=== PATIENT | female | born 1940 | race Native Hawaiian/Other Pacific Islander ===

== ENCOUNTER 2018-02-24 10:22 | Inpatient (IN) | payer MEDICARE, OTHER ==
[2018-02-24 10:36] VITALS: BMI 17.2
[2018-02-24 11:53] LABS: ALB/GLOB RATIO 1.3 (1.0-2.1); ALBUMIN 3.6 g/dL (3.5-5.0)
--- NOTE | 2018-02-24 11:55 | C.PDOC ---
History Of Present Illness 77 year old female, with past medical history of HTN, and hypothyroidism, is sent to ED by PMD for evaluation of elevated potassium levels. Patient is unsure of potassium levels. Otherwise, denies chest pain, shortness of breath, hea dache, or any active physical complaints at this time. Time Seen by Provider: 02/24/18 10:44 Chief Complaint (Nursing): Abnormal Labs History Per: Patient History/Exam Limitations: no limitations Onset/Duration Of Symptoms: Days Current Symptoms Are (Timing): Still Present Recent travel outside of the [place]: No Additional History Per: Patient Past Medical History Reviewed: Historical Data, Nursing Documentation, Vital Signs Vital Signs: Last Vital Signs Temp 98.2 F 02/24/18 10:29 Pulse 68 02/24/18 11:18 Resp 18 02/24/18 10:40 BP 130/55 L 02/24/18 11:18 Pulse Ox 100 02/24/18 10:29 - Medical History PMH: Arthritis, HTN Denies: Chronic Kidney Disease Family History: States: Unknown Family Hx - Social History Hx Tobacco Use: No Hx Alcohol Use: No Hx Substance Use: No - Immunization History Hx Tetanus Toxoid Vaccination: No (not sure) Hx Influenza Vaccination: Yes Hx Pneumococcal Vaccination: Yes Review Of Systems Except As Marked, All Systems Reviewed And Found Negative. Constitutional: Negative for: Fever, Chills Cardiovascular: Negative for: Chest Pain, Palpitations Respiratory: Negative for: Shortness of Breath Gastrointestinal: Negative for: Nausea, Vomiting, Abdominal Pain Neurological: Negative for: Headache, Dizziness Physical Exam - Physical Exam Appears: Non-toxic, No Acute Distress, Other (thin habitus) Skin: Normal Color, Warm, Dry Head: Atraumatic, Normacephalic Eye(s): bilateral: Normal Inspection Oral Mucosa: Moist Neck: Normal ROM, Supple Cardiovascular: Rhythm Regular, No Murmur Respiratory: Normal Breath Sounds, No Rales, No Rhonchi, No Wheezing Gastrointestinal/Abdominal: Soft, No Tenderness Extremity: Normal ROM Neurological/Psych: Oriented x3, Normal Speech ED Course And Treatment - Laboratory Results Result Diagrams: 02/24/18 12:40 02/24/18 11:22 Lab Interpretation: Abnormal ECG: Interpreted By Me, Viewed By Me ECG Rhythm: Sinus Rhythm ECG Interpretation: No Acute Changes Rate From EC (LAD, no peaked Twaves) O2 Sat by Pulse Oximetry: 100 (on RA) Pulse Ox Interpretation: Normal Medical Decision Making Medical Decision Making: Impression: 77 year old female presents with elevated potassium levels. Plan: * Blood work * ECG * Albuterol * Lasix * Insulin * Dextrose Progress: Labs reviewed with hyperkalemia 6.[address] Amaro who also recommended adding additional medications and to repeat labs in an hour. 1355 Patient started feeling unwell, diaphoretic and tachycardia at 120s. I went to bedside to evaluated. Accucheck was 26 and repeat still low. Ordered dextrose and another stat EKG. EKG shows NS at 91 bpm with peaked Twaves in V4-6. Case discussed with Dr Amaro who states patient needs repeat labs and to admit to tele. Patient repeat sugar improved. She was more alert and awake and was given some food to eat. She is stable for tele admission. Contact Dr Driver for admission and she accepted Disposition - Disposition Disposition: HOSPITALIZED Disposition Time: 14:52 Condition: FAIR - POA Present On Arrival: None - Clinical Impression Clinical Impression: Hyperkalemia - PA / FINANCIAL INVESTMENT ADVISER / Resident Statement MD/DO has reviewed & agrees with the documentation as recorded. - Scribe Statement The provider has reviewed the documentation as recorded by the Scribe Napoleon clay All medical record entries made by the Ronnyibe were at my direction and personally dictated by me. I have reviewed the chart and agree that the record accurately reflects my personal performance of the history, physical exam, medical decision making, and the department course for this patient. I have also personally directed, reviewed, and agree with the discharge instructions and disposition. Decision To Admit - Pt Status Changed To: Hospital Disposition Of: Observation - . Bed Request Type: Telemetry Admitting Physician: Canelo Miles Patient Diagnosis: Hyperkalemia
[2018-02-24] MEDS ORDERED: Albuterol 0.083% Inhal Sol (2.5 mg/3 mL) UD IH STA (12:03)
[2018-02-24] MEDS ORDERED: (Novolin R) Insulin Human Regular 100 units/ml vial IVP ONE (12:04)
[2018-02-24] MEDS ORDERED: Dextrose 50% SYRINGE Inj (50 ml) IV STA (12:04)
[2018-02-24] MEDS ORDERED: Dextrose 50% SYRINGE Inj (50 ml) ONE ×2 (12:31→14:08)
[2018-02-24] MEDS ORDERED: (Novolin R) Insulin Human Regular 100 units/ml vial ONE (12:31)
[2018-02-24 12:46] LABS: MEAN CELL VOLUME 90.4 fL (81.0-99.0); MEAN CORPUSCULAR HEMOGLOBIN 30.4 pg (27.0-31.0); MEAN CORPUSCULAR HGB CONC 33.7 g/dL (33.0-37.0); MEAN PLATELET VOLUME 7.6 fL (7.2-11.7); RBC 3.01 Mil/uL (3.80-5.20); RED CELL DISTRIBUTION WIDTH 13.1 % (11.5-14.5); WHITE BLOOD COUNT 4.7 K/uL (4.8-10.8)
[2018-02-24 13:03] LABS: HEMOGLOBIN 9.2 g/dL (11.0-16.0)
[2018-02-24] MEDS ORDERED: Calcium Gluconate 4.65 mEq/10 ml Inj IVP ONE (13:24)
[2018-02-24] MEDS ORDERED: Sod Polystyrene Sulf 15 gm/60 ml Susp PO ONE (13:25)
[2018-02-24] MEDS ORDERED: Dextrose 50% SYRINGE Inj (50 ml) IVP STA (14:00)
[2018-02-24] MEDS ORDERED: Glucagon Recombinant 1 mg Inj IM PRN (14:16)
[2018-02-24] MEDS ORDERED: Dextrose 50% SYRINGE Inj (50 ml) IV PRN (14:16)
[2018-02-24] MEDS ORDERED: Calcium Gluconate 4.65 mEq/10 ml Inj ONE (14:20)
[2018-02-24] MEDS ORDERED: Sod Polystyrene Sulf 15 gm/60 ml Susp ONE (14:20)
[2018-02-24] MEDS ORDERED: Sodium Chloride 0.9% 1,000 ML IV ONE (14:22)
--- NOTE | 2018-02-24 15:42 | CP.PCM.HP ---
<Fidel Zamora - Last Filed: 02/24/18 21:11> History of Present Illness - History of Present Illness History of Present Illness: PGY1 Medicine H&P for hospitalist Dr. Chang. 77 F w/ Pmhx of CKD, ?dementia, HTN, thyroid disorder present to ED after referral by her PMD for hyperkalemia. Pt states she was is completely asymptomatic however, her priamry had called indicated her level was high. Patient denies chest pain, SOB, nausea, vomtiing, palpitation, headaches, vision changes. Patient did state during ED, she felt a little palpitation because of blood sugars dropping to 20s, but right now she feels normal. PMD: Catrachito Monsivais, Nephro: Faith, endo: Dr. Burnham PMhX: CKD stage 3, HTN, dementia?, thyroid disorder Meds: clondine 0.1 mg TID, Cozaar 50 mg daily, Spirolactone 50 mg BID, Methimazole 10 mg daily, Atorvastatic 20 mg daily, Asipring 81 mg daily Allergies: Walnuts PSHx: None SHx: Denies tobacco, ETOH Full Code Present on Admission - Present on Admission Any Indicators Present on Admission: No Review of Systems - Constitutional Constitutional: absent: Chills, Fever, Frequent Falls - EENT Eyes: absent: Blurred Vision, Discharge Nose/Mouth/Throat: absent: Nasal Congestion, Sinus Pressure, Dry Mouth - Cardiovascular Cardiovascular: absent: Chest Pain, Diaphoresis, Dyspnea - Respiratory Respiratory: absent: Cough, Dyspnea, Stridor - Gastrointestinal Gastrointestinal: absent: Abdominal Pain, Cramping, Vomiting - Genitourinary Genitourinary: absent: Change in Urinary Stream - Musculoskeletal Musculoskeletal: absent: Abnormal Gait, Arthralgias, Joint Swelling - Neurological Neurological: absent: Abnormal Gait, Behavioral Changes, Dizziness Past Patient History - Past Medical History & Family History Past Medical History?: Yes - Past Social History Smoking Status: Never Smoked - CARDIAC Hx Hypertension: Yes - PULMONARY Hx Respiratory Disorders: No - NEUROLOGICAL Hx Neurological Disorder: No - HEENT Hx HEENT Problems: No - RENAL Hx Chronic Kidney Disease: No - ENDOCRINE/METABOLIC Hx Endocrine Disorders: No - HEMATOLOGICAL/ONCOLOGICAL Hx Blood Disorders: No - INTEGUMENTARY Hx Dermatological Problems: No - MUSCULOSKELETAL/RHEUMATOLOGICAL Hx Arthritis: Yes - GASTROINTESTINAL Hx Gastrointestinal Disorders: No - GENITOURINARY/GYNECOLOGICAL Hx Genitourinary Disorders: No - PSYCHIATRIC Hx Substance Use: No - SURGICAL HISTORY Hx Surgeries: No - ANESTHESIA Hx Anesthesia: No Meds Allergies/Adverse Reactions: Allergies Allergy/AdvReac Type Severity Reaction Status Date / Time No Known Allergies Allergy Verified 02/24/18 10:31 Physical Exam - Constitutional Appears: Non-toxic, No Acute Distress, Cachectic - Head Exam Head Exam: NORMAL INSPECTION - Eye Exam Eye Exam: EOMI, Normal appearance Pupil Exam: NORMAL ACCOMODATION - ENT Exam ENT Exam: Mucous Membranes Moist - Neck Exam Neck exam: Negative for: Lymphadenopathy, Thyromegaly - Respiratory Exam Respiratory Exam: Clear to Auscultation Bilateral, NORMAL BREATHING PATTERN. absent: Rales, Rhonchi, Wheezes - Cardiovascular Exam Cardiovascular Exam: +S1, +S2. absent: Systolic Murmur - GI/Abdominal Exam GI & Abdominal Exam: Normal Bowel Sounds, Soft. absent: Mass, Rebound - Extremities Exam Extremities exam: Positive for: full ROM, normal inspection. Negative for: calf tenderness, pedal edema - Back Exam Back exam: NORMAL INSPECTION. absent: CVA tenderness (L), CVA tenderness (R) - Neurological Exam Neurological exam: Alert, Oriented x3 - Psychiatric Exam Psychiatric exam: Normal Affect, Normal Mood - Skin Skin Exam: Dry, Intact, Normal Color, Warm Results - Vital Signs Recent Vital Signs: Last Vital Signs Temp 98.2 F 02/24/18 10:29 Pulse 77 02/24/18 14:31 Resp 17 02/24/18 14:31 BP 129/60 02/24/18 14:31 Pulse Ox 100 02/24/18 15:10 - Labs Result Diagrams: 02/24/18 12:40 02/24/18 17:17 Labs: Laboratory Results - last 24 hr 02/24/18 02/24/18 02/24/18 11:22 12:40 14:04 WBC 4.7 L RBC 3.01 L Hgb 9.2 L D Hct 27.2 L MCV 90.4 MCH 30.4 MCHC 33.7 RDW 13.1 Plt Count 205 MPV 7.6 Sodium 133 Potassium 6.4 H* D Chloride 107 Carbon Dioxide 19 L Anion Gap 14 BUN 38 H Creatinine 2.8 H Est GFR ( Amer) 20 Est GFR (Non-Af Amer) 16 POC Glucose (mg/dL) 23 L* Random Glucose 125 H Calcium 9.0 Magnesium 2.4 H Total Bilirubin 0.4 AST 21 ALT 21 Alkaline Phosphatase 35 L D Total Protein 6.3 Albumin 3.6 Globulin 2.7 Albumin/Globulin Ratio 1.3 02/24/18 02/24/18 02/24/18 14:06 14:09 14:30 WBC RBC Hgb Hct MCV MCH MCHC RDW Plt Count MPV Sodium Potassium Chloride Carbon Dioxide Anion Gap BUN Creatinine Est GFR ( Amer) Est GFR (Non-Af Amer) POC Glucose (mg/dL) 26 L* 320 H 137 H Random Glucose Calcium Magnesium Total Bilirubin AST ALT Alkaline Phosphatase Total Protein Albumin Globulin Albumin/Globulin Ratio 02/24/18 15:07 WBC RBC Hgb Hct MCV MCH MCHC RDW Plt Count MPV Sodium Potassium Chloride Carbon Dioxide Anion Gap BUN Creatinine Est GFR ( Amer) Est GFR (Non-Af Amer) POC Glucose (mg/dL) 94 Random Glucose Calcium Magnesium Total Bilirubin AST ALT Alkaline Phosphatase Total Protein Albumin Globulin Albumin/Globulin Ratio Assessment & Plan - Assessment and Plan (Free Text) Assessment: 77 F w/ Pmhx of CKD, ?dementia, HTN, thyroid disorder present to ED after refe rral by her PMD for hyperkalemia Hyperkalemia - on admission 6.4, asymptomatic - peaked T wave on EKG - in ED received Calcium gluconate & insulin 10 units, lasix, & kayexalate - resulting in hypoglycemia in BS of 20s - D50 X3 given - Repeat K+ 5.4 - D51/2NS @50ml/hr Chronic Kidney Disease - stage 3 - BUN/Cr -> 38/2.8 - F/u nephDr. Faith wallace recs - Hold Cozaar & Aldactone Hypertension - per Dr. Cuevas, patient runs in SBP 180s - c/w home meidication clonidine 0.1 mg PO TID - Hold Cozaar & Aldactone - start amlodipine 5 mg Po daily Thyroid Disorder - c/w home medication methimazole 10 mg PO daily Prophylaxis - DVT: Heparin 5000 units Q12h - Diet- renal diet, non dialysis - Multivimin <Jeanette Chang V - Last Filed: 03/01/18 10:50> Results - Vital Signs Recent Vital Signs: Last Vital Signs Temp 97.9 F 02/28/18 07:00 Pulse 70 02/28/18 08:00 Resp 20 02/28/18 07:00 BP 149/75 02/28/18 10:48 Pulse Ox 99 02/28/18 07:00 - Labs Result Diagrams: 02/28/18 06:25 02/28/18 11:13 Labs: Laboratory Results - last 24 hr 02/26/18 02/26/18 02/28/18 08:49 16:34 11:13 Creatinine 1.9 H POC Glucose (mg/dL) Thyroid Stim Immunoglob 558 H U Random Total Protein 282 H Urine Collection Time 24 Urine Total Volume 1200 Ur Creatinine 24 Hour Creatinine Clearance 21.0 L Ur Total Protein 24 Hr Protein/Creat Ratio 24h Ur Sodium 24 Hour 02/28/18 02/28/18 02/28/18 11:13 11:13 11:13 Creatinine POC Glucose (mg/dL) Thyroid Stim Immunoglob U Random Total Protein Urine Collection Time 24 24 Urine Total Volume 1200 1200 Ur Creatinine 24 Hour 604.8 L 0.62 Creatinine Clearance Ur Total Protein 24 Hr 168 H Protein/Creat Ratio 24h 269 H Ur Sodium 24 Hour 84.0 02/28/18 12:03 Creatinine POC Glucose (mg/dL) 119 H Thyroid Stim Immunoglob U Random Total Protein Urine Collection Time Urine Total Volume Ur Creatinine 24 Hour Creatinine Clearance Ur Total Protein 24 Hr Protein/Creat Ratio 24h Ur Sodium 24 Hour Attending/Attestation - Attestation I have personally seen and examined this patient.: Yes I have fully participated in the care of the patient.: Yes I have reviewed all pertinent clinical information: Yes Notes (Text): This is late computer entry for 02/24/18 Patient seen, examined and case discussed with medical facilities section director. Patient seen in [facility] Bed 11 in the Emergency Room accompanied by , son and daughter in law. Patient was called by PMD for abnormal lab value specifically hyperkalemia in light of chronic kidney disease. Patient reported feeling leg cramps and in the ED had abnormal EKG consistent with hyperkalemia. Patient was treated by ED for hyperkalemia, received total of Regular insulin 30 units of IV however, became hypoglycemic. I spoke with patient's economist research assistant, patient has a history of RTA 4, hyperaldosteronism, and is presently on aldactone, ARB, and diuretic. Patient has a history of hypertension, usually systolic blood pressure in the 180s, which she also takes clonidine as well. Patient at home eats sparingly, today orange juice/pineapple juice as well. Patient has a history of underlying dementia as well, very conversational and pleasant. Patient reports she has been having poor appetite with unintentional weight loss. Assessment/Plan 1. Hyperkalemia Assessment/Plan * on telemetry * on admission 6.4, asymptomatic * peaked T wave on EKG * in ED received Calcium gluconate & (insulin 10 units X3), lasix, & kayexalate - resulting in hypoglycemia in BS of 20s; requiring D50 X3 given * Repeat K+ 5.4 and check Mg2+ * Patient started on gentle iv hydration supplemented with dextrose * Patient's cozaar, aldactone held secondary to side effect of hyperkalemia 2. History of Chronic Kidney Disease Assessment/Plan * Consult Dr Cuevas help appreciated * Case discussed with nephrology, will see the patient in the morning * monitor BUN/Cr * hold aldactone/cozaar 3. Essential Hypertension Assessment/Plan * Consult Dr Cuevas help appreciated * patient's systolic BP around the 180s normally * d/c arb/aldactone * c/w home mediication clonidine 0.1 mg PO TID * Start amlodipine 5 mg Po daily 4. Thyroid Disorder * c/w home medication methimazole 10 mg PO daily * Check TSH, Free T4 5. Hypoglycemia * secondary to treatment of hyperkalemia, chronic kidney disease * check accuchecks Q6H * Hypoglycemic protocol * Monitor on telemetry * patient ordered for gentle IV hydration supplemented with dextrose 6. Prophylaxis * DVT PPx: Heparin 5000 units Q12h * Diet- renal diet, non dialysis, low sodium diet
[2018-02-24] MEDS ORDERED: Dextrose 5%/0.45% NS 1,000 ML IV SCH (17:15)
[2018-02-24 18:04] LABS: ALB/GLOB RATIO 1.3 (1.0-2.1); ALBUMIN 3.9 g/dL (3.5-5.0); CALCIUM 9.4 mg/dl (8.6-10.4)
[2018-02-24 18:41] VITALS: RESP 20
[2018-02-24 19:55] LABS: CK-MB 1.82 ng/mL (0.0-3.38); TROPONIN I 0.028 ng/mL (0.00-0.120)
[2018-02-24] MEDS: Psyllium Packet PO SCH (21:59)
[2018-02-25 00:52] LABS: CK-MB 1.89 ng/mL (0.0-3.38); TROPONIN I 0.038 ng/mL (0.00-0.120)
[2018-02-25] MEDS: Albuterol-Ipratrop 3 mg / 0.5 (3 ml) UD INH SCH ×4 (01:31→19:57)
--- NOTE | 2018-02-25 07:33 | CP.PCM.PN ---
<Fidel Zamora M - Last Filed: 02/25/18 19:39> Subjective - Date & Time of Evaluation Date of Evaluation: 02/25/18 Time of Evaluation: 08:00 - Subjective Subjective: PGY1 Medicine Progress for Hospitalist Dr. Chang. Patient seen and examined. No acute events reported overnight. Patient remains asymptomatic early in AM. Denied chest pain, n/v, fevers, chills, abdominal pain, headaches, vision changes. AM labs reported elevated K+ resulting in duonebs & kayexalate 30 mg. Repeat K+ showed 5.2. In mid day patient became tachy in 130s. Patient had minor palpitations, but became asymptomatic with persistence of HR in 130s. Lopressor 5mg IVP given, with repeat HR in 90s to 100s. Additionally patient began complaining of episodes of non bloody, watery, diarrhea. Objective - Vital Signs/Intake and Output Vital Signs (last 24 hours): Temp Pulse Resp BP Pulse Ox 97.9 F 63 20 119/62 100 02/24/18 23:25 02/25/18 01:31 02/24/18 23:25 02/24/18 23:25 02/24/18 23:25 Intake and Output: 02/25/18 02/25/18 06:59 18:59 Intake Total 720 Balance 720 - Medications Medications: Current Medications Albuterol/Ipratropium (Duoneb 3 Mg/0.5 Mg (3 Ml) Ud) 3 ml INH RQ6 [facility] Last Admin: 02/25/18 01:31 Dose: 3 ml Amlodipine Besylate (Norvasc) 5 mg PO DAILY [facility] Aspirin (Aspirin Chewable) 81 mg PO DAILY [facility] Clonidine HCl (Catapres) 0.1 mg PO TID [facility] Last Admin: 02/24/18 18:10 Dose: 0.1 mg Dextrose (Dextrose 50% Inj) 0 ml IV STAT PRN; Protocol PRN Reason: Hypoglycemia Protocol Dextrose (Glutose 15) 0 gm PO ONCE PRN; Protocol PRN Reason: Hypoglycemia Protocol Glucagon (Glucagen Diagnostic Kit) 0 mg IM STAT PRN; Protocol PRN Reason: Hypoglycemia Protocol Heparin Sodium (Porcine) (Heparin) 5,000 units SC Q12 [facility] Last Admin: 02/24/18 21:59 Dose: 5,000 units Dextrose (Dextrose 5% In Water 1000 Ml) 1,000 mls @ 0 mls/hr IV .Q0M PRN; Protocol PRN Reason: Hypoglycemia Protocol Last Admin: 02/24/18 15:59 Dose: 100 mls/hr Dextrose/Sodium Chloride (Dextrose 5%/0.45% Ns 1000 Ml) 1,000 mls @ 50 mls/hr IV .Q20H [facility] Stop: 02/25/18 17:16 Last Admin: 02/24/18 17:23 Dose: 50 mls/hr Losartan Potassium (Cozaar) 50 mg PO DAILY [facility] Methimazole (Tapazole) 10 mg PO DAILY [facility] Multivitamins (Hexavitamin) 1 tab PO DAILY [facility] Psyllium Hydrophilic Mucilloid (Hydrocil Instant) 1 pkt PO QPM [facility] Last Admin: 02/24/18 21:59 Dose: 1 pkt Rosuvastatin Calcium (Crestor) 10 mg PO HS [facility] Spironolactone (Aldactone) 50 mg PO BID [facility] - Labs Labs: 02/24/18 12:40 02/24/18 17:17 - Constitutional Appears: Non-toxic, No Acute Distress, Cachectic - Head Exam Head Exam: NORMAL INSPECTION - Eye Exam Eye Exam: Normal appearance Pupil Exam: NORMAL ACCOMODATION - ENT Exam ENT Exam: Mucous Membranes Moist - Neck Exam Neck Exam: Normal Inspection - Respiratory Exam Respiratory Exam: Clear to Ausculation Bilateral, NORMAL BREATHING PATTERN. absent: Rales, Rhonchi, Wheezes - Cardiovascular Exam Cardiovascular Exam: +S1, +S2. absent: Irregular Rhythm, Murmur - GI/Abdominal Exam GI & Abdominal Exam: Soft, Normal Bowel Sounds - Extremities Exam Extremities Exam: Full ROM, Normal Inspection. absent: Calf Tenderness, Pedal Edema - Back Exam Back Exam: absent: CVA tenderness (L), CVA tenderness (R) - Neurological Exam Neurological Exam: Alert, Awake, Oriented x3 - Psychiatric Exam Psychiatric exam: Normal Affect, Normal Mood - Skin Skin Exam: Dry, Intact, Normal Color, Warm Assessment and Plan - Assessment and Plan (Free Text) Assessment: 77 F w/ Pmhx of CKD, ?dementia, HTN, thyroid disorder present to ED after referral by her PMD for hyperkalemia. Hyperkalemia treated; however, continues to fluctuate. Additionally, patient has bouts of tachycardia, w/ TSH < 0.2, Hyperkalemia Hx of RTA Type 4 hypoaldosteronism Chronic Kidney Disease, stage 3 - K+ fluctuating, from 6.4 on admission to presently 5.2 - D51/2NS @50ml/hr - BUN/Cr worsening since admission - F/u nephDr. Faith wallace recs - Hold Cozaar & Aldactone Anemia - hgb 9s to 10s; previously in 2017, 12s - Iron, Ferritin, TIBC MCV, wnl - likely secondary due to CKD - F/u Folate & Reticulocyte count Thyroid Disorder Tachycardia - TSH < 0.2, Free T4 0.91 - F/u Thyroid U/S - F/u TSI, TBI, T3, T4 - F/u endo Dr. Vic mckinnon - increase methimazole 10 mg daily to BID Weight Loss - significant weight loss 10+ pounds - Cancer vs thyroid disorder vs ? - per pt, had normal colonoscopy 2 years prior w/ Dr. Bone - TSH < 0.02, will f/u endo Dr. Churchill recs as above - Will consider scan for malignancy/ mass Diarrhea - infectious vs thyroid disorder - f/u C.diff, ova/parasites, & stool culture - See thyroid plan above Hypertension - per Dr. Cuevas, patient runs in SBP 180s - c/w home meidication clonidine 0.1 mg PO TID - Hold Cozaar & Aldactone - start amlodipine 5 mg Po daily - lopressor 5mg IVP Q6h PRN for SBP/ tachycardia - F/u Echo Dementia - stable - continue to monitor Prophylaxis - DVT: Heparin 5000 units Q12h - Diet- renal diet, non dialysis - Multivimine <Jeanette Chang V - Last Filed: 03/01/18 11:04> Objective - Vital Signs/Intake and Output Vital Signs (last 24 hours): Temp Pulse Resp BP Pulse Ox 97.9 F 70 20 149/75 99 02/28/18 07:00 02/28/18 08:00 02/28/18 07:00 02/28/18 10:48 02/28/18 07:00 - Labs Labs: 02/28/18 06:25 02/28/18 11:13 Attending/Attestation - Attestation I have personally seen and examined this patient.: Yes I have fully participated in the care of the patient.: Yes I have reviewed all pertinent clinical information, including history, physical exam and plan: Yes Notes (Text): This is late computer entry for 02/25/18, Patient seen, examined and case discussed with day-time resident. Patient's potassium elevated this morning; patient ordered for DuonebX1, Kayexlate. Repeat potassium ordered. Patient was initially borderline bradycardic but became tachycardic during rounds; approximately 120-130s. David angeline given Lopressor 5mg IV X1; heart rate improved to the 90s. Patient with history of hyperthyroidism; per discussion with nephrology, her methimazole was adjusted recently by her jr. systems administrator, who does not come to [facility]; we will seek guidance from Dr. Ho, jr. systems administrator. It is possible her weight loss; unintentional weight loss, diarrhea, may be attributed to her thyroid disorder. Patient has had a colonoscopy with dr. Bone in the past, no acute findings per . I am unable to CT scan with IV contrast at this given her chronic kidney disease. I have spoken with her son who is also ED soldering technician and relayed my concerns whether his mother's unintentional weight loss and poor appetite is attributed to her thyroid or if it could be related to something like cancer, which is quite early to say. In regards to her dementia, he reports his father took his mother about 5 years ago to a neurologist, but she was quite upset in regards to that visit, reported "i am not crazy" and has not ever been reassessed or started on anti-dementia medications and it has progessive decline in regards to her dementia. Assessment/Plan 1. Hyperkalemia Assessment/Plan * on telemetry * on admission 6.4, asymptomatic * peaked T wave on EKG * in ED received Calcium gluconate & (insulin 10 units X3), lasix, & kayexalate - resulting in hypoglycemia in BS of 20s; requiring D50 X3 given * Repeat K+ 5.4 and check Mg2+ * Patient started on gentle iv hydration supplemented with dextrose * Patient's cozaar, aldactone held secondary to side effect of hyperkalemia * Duoneb and Kayexlate given 02/25/18; f/u potassium 2. History of Chronic Kidney Disease Assessment/Plan * Consult Dr Cuevas help appreciated * Case discussed with nephrology, will see the patient in the morning * monitor BUN/Cr * hold aldactone/cozaar 3. Essential Hypertension Assessment/Plan * Consult Dr Cuevas help appreciated * patient's systolic BP around the 180s normally * d/c arb/aldactone * c/w home mediication clonidine 0.1 mg PO TID * c/w amlodipine 5 mg Po daily * Lopressor 5mg IV X1 for tachycardia; start Lopressor 5mg IV Q6H PRN SBP>160 4. Thyroid Disorder Assessment/Plan * c/w home medication methimazole 10 mg PO daily * Resident has spoken with Dr. Ho, recommends increase to Methimazole 10mg PO BID * ordered for thyroid studies and thyroid US * Low TSH consistent with hyperthyroidism 5. Hypoglycemia Assessment/Plan * secondary to treatment of hyperkalemia, chronic kidney disease * check accuchecks Q6H * Hypoglycemic protocol * Monitor on telemetry * patient ordered for gentle IV hydration supplemented with dextrose * improved 6. Diarrhea Assessment/Plan * possible secondary to kayexlate or thyroid disease * check stool studies r/o infectious etiology 7. Tachycardia Assessment/Plan * possible secondary to thyroid disorder * check echo * Lopressor 5mg IV Q6H PRN SBP>160 * on telemetry 8. Prophylaxis Assessment/Plan * DVT PPx: Heparin 5000 units Q12h * Diet- renal diet, non dialysis, low sodium diet * calorie count in light of poor intake * Community Health Coordinator referral given poor intake * PT/OT nora
[2018-02-25 07:37] LABS: BASO % 0.5 % (0.0-2.0); EOS # 0.2 K/uL (0.0-0.7); EOS % 3.7 % (0.0-4.0); HEMOGLOBIN 8.4 g/dL (11.0-16.0); LYMPH # 0.8 K/uL (1.0-4.3); LYMPH % 13.2 % (20.0-40.0); MEAN CORPUSCULAR HEMOGLOBIN 30.3 pg (27.0-31.0); MEAN CORPUSCULAR HGB CONC 33.6 g/dL (33.0-37.0); MONO # 0.5 K/uL (0.0-0.8); MONO % 7.4 % (0.0-10.0); NEUT # 4.7 K/uL (1.8-7.0); NEUT % 75.2 % (50.0-75.0); RBC 2.77 Mil/uL (3.80-5.20); RED CELL DISTRIBUTION WIDTH 13.1 % (11.5-14.5); WHITE BLOOD COUNT 6.3 K/uL (4.8-10.8)
[2018-02-25 08:03] LABS: ALB/GLOB RATIO 1.2 (1.0-2.1); ALBUMIN 2.9 g/dL (3.5-5.0); ALT/SGPT 23 U/L (9-52); AST/SGOT 18 U/L (14-36); BLOOD UREA NITROGEN 38 mg/dL (7-17); CALCIUM 8.2 mg/dl (8.6-10.4); GFR NON-AFRICAN AMERICAN 16
[2018-02-25] MEDS ORDERED: Albuterol-Ipratrop 3 mg / 0.5 (3 ml) UD INH STA (08:16)
[2018-02-25] MEDS ORDERED: Sod Polystyrene Sulf 15 gm/60 ml Susp PO ONE (08:17)
[2018-02-25] MEDS ORDERED: Sodium Bicarbonate 8.4% 50 MEQ in Dextrose 5%/0.45% NS 1,000 ML IV SCH (08:50)
[2018-02-25] MEDS: Multiple Vitamins Tab PO SCH (10:00)
[2018-02-25] MEDS ORDERED: Metoprolol 1 mg/ml Inj IVP ONE (15:45)
[2018-02-25] MEDS: Psyllium Packet PO SCH (17:32)
[2018-02-25] MEDS ORDERED: Dextrose 5%/0.45% NS 1,000 ML IV SCH (18:45)
[2018-02-25] MEDS ORDERED: Metoprolol 1 mg/ml Inj IVP PRN (19:17)
[2018-02-26] MEDS: Albuterol-Ipratrop 3 mg / 0.5 (3 ml) UD INH SCH ×4 (01:02→20:25)
--- NOTE | 2018-02-26 03:25 | CON ---
DATE: 02/25/2018 NEPHROLOGY CONSULTATION HISTORY OF PRESENT ILLNESS: The patient is 77-year-old female with past medical history of hypertension, CKD stage 4, hyperthyroidism sent by PMD to ER due to hyperkalemia. Nephrology being consulted for the same. The patient has been followed with our outpatient service since the past one year, has very difficult to control hypertension and evidence of hyperaldosteronism, sent to ED by PMD due to hyperkalemia, the patient had associated leg cramps and was given Toradol in the ER before being admitted. The patient otherwise has not being eating well per family, son reports progressive weight loss with the patient having lost over 40 pounds in the past 1 to 2 years. The patient otherwise denies any fevers or night sweats. Had methimazole dose increased recently by wildlife forensic geneticist. Denies any vomiting or diarrhea. The patient had been on losartan and Aldactone due to evidence of hyperaldosteronism prescribed by our service; Aldactone dose was cut in half by us, approximately 1 month ago due to mild hyperkalemia and worsened renal function, the patient did not have followup chemistry panel until the day before presentation. PAST MEDICAL HISTORY: As above, also with evidence of dementia. SOCIAL HISTORY: Denies smoking. FAMILY HISTORY: Two healthy sons. REVIEW OF SYSTEMS: CONSTITUTIONAL: As per HPI. HEENT: Denies any dysphagia. No difficulty swallowing. RESPIRATORY: Denies any shortness of breath. CARDIOVASCULAR: Currently having palpitations. GI: As per HPI. : Denies any dysuria, urinating frequently today after being given IV Lasix. MUSCULOSKELETAL: As per HPI. NEURO: Has dementia. PSYCHIATRIC: Evidence of dementia. PHYSICAL EXAMINATION GENERAL: No distress. Conversing coherently in full sentences. VITAL SIGNS: Blood pressure this afternoon 156/172, heart rate 128, respirations 20, temperature 99.4, O2 sat 98% on room air. HEENT: Moist mucous membranes. Nonicteric. No cervical lymphadenopathy. RESPIRATORY: Lungs clear to auscultation bilaterally. No rales. No rhonchi. No wheezes. CARDIOVASCULAR: Tachycardic, regular rhythm. No obvious murmurs. GI: Abdomen soft, nontender, and nondistended. : No bladder distention. SKIN: Warm. No cyanosis. PSYCHIATRIC: Normal mood. Normal affect. Non agitated. NEUROLOGIC: Tremor of outstretched hands. LABORATORY DATA: CBC; WBC 6.3, hemoglobin 8.4, hematocrit 24.9, and platelets 194. Chemistry panel; sodium 136, potassium 5.2, chloride 103, bicarb 23, BUN 38, and creatinine 3.1. Glucose 110, calcium 9, albumin this morning 2.9. Iron studies, iron saturation 32%, ferritin 235. ASSESSMENT AND PLAN: 1. Hyperkalemia, partly iatrogenic in the setting of worsening renal function and being on heavy doses of aldosterone receptor joceline as well as angiotensin receptor joceline. Hyperkalemia improved with medical management and holding renin-angiotensin system blockade, will continue to hold renin-angiotensin system blockade. Continuing with bicarb drip with half normal saline and 50 mEq sodium bicarbonate running at 50 mL/hr. Avoid nonsteroidal antiinflammatory drugs. Continue to hold renin-angiotensin system blockade. Low potassium diet. 2. Acute kidney injury versus progression of chronic kidney disease stage 4. Serum creatinine 2.2 upto 3.9 currently, may improve with the factor of renin-angiotensin system blockade wearing off. Should avoid all nephrotoxic agents. 3. Hypertensive chronic kidney disease. The patient with evidence of hyperaldosteronism with positive screen. Blood pressure typically runs high as outpatient with office readings frequently in 160's, have shown improvement with Aldactone, currently on hold as mentioned above. Agree with amlodipine increasing dose to 10 mg, continue clonidine 0.1 mg t.i.d., goal is to keep systolic blood pressure less than 150 for now. 4. Hyperthyroidism. The patient currently with marked tachycardia, appears to be sinus rhythm. TSH is undetectable. Methimazole dose was recently increased by primary wildlife forensic geneticist, recommend getting endocrine consultation while the patient is admitted. 5. Anemia of chronic kidney disease. Iron study shows that the patient is iron replete. We will dose Epogen as hemoglobin is considerably lower than goal of 10 to 11 g. Thank you for this referral. We will be following. Lenin Cuevas MD
--- NOTE | 2018-02-26 05:52 | CON ---
DATE: 02/25/2018 ENDOCRINOLOGY CONSULT LOCATION: Room 557. HISTORY OF PRESENT ILLNESS: This is a 77-year-old female with known history of longstanding hyperthyroidism, currently on methimazole taken at 10 mg once daily and has been admitted because of persistent hyperkalemia with underlying chronic kidney disease, and is now being referred for endocrine evaluation and management. PAST MEDICAL HISTORY: As mentioned above, history of longstanding hyperthyroidism and has been taking Tapazole at a variable dose of 10 mg once daily and occasionally took 10 mg b.i.d. as noted, history of longstanding hypertension with underlying progressive renal insufficiency, chronic kidney disease stage 3, history of dyslipidemia, currently on Lipitor 20 mg once daily. FAMILY HISTORY: Positive for hypertension and heart disease. SOCIAL HISTORY: Patient has supportive family. No known substance use. REVIEW OF SYSTEMS: Admits to generalized body weakness with easy fatigability, tiredness, and suboptimal energy level, worse in the last few weeks prior to admission, also admits to episodic bouts of dizziness and lightheadedness with bifrontal headache. No chest pains or palpitations, but admits to progressive shortness of breath, especially on exertion. Her oral intake has been extremely variable and suboptimal with nausea, dyspepsia, and habitual constipation. PHYSICAL EXAMINATION: GENERAL: This is an female, in no apparent distress. VITAL SIGNS: Blood pressure 150/90, pulse of 110 beats per minute and regular, temperature 98, respirations 20, height 4 feet and 11 inches, weight is 85 pounds. HEENT: Head is normocephalic. Eyes anicteric with pale conjunctivae. Funduscopy not possible at this time. Ears, nose, and throat, otherwise, normal. There is no overt thyroid orbitopathy noted. NECK: Supple. Thyroid gland is firm and nontender with no cervical adenopathy or thyroid bruits. HEART: Hyperdynamic precordium. S1 and S2, rapid and regular. LUNGS: Clear to auscultation. ABDOMEN: Flat and soft with positive bowel sounds. EXTREMITIES: No peripheral edema. Pulses are +2 bilaterally. LABORATORY DATA: Hemoglobin is 8.4, hematocrit of 25, MCV 90, platelets 194. Chemistry showed a BUN of 38, sodium 136, potassium 5.2, chloride 103, CO2 of 23, glucose 110, and creatinine 3.1. Initial potassium was 6.4 on admission. TSH was reported as less than 0.02 with a free T4 of 0.91. ASSESSMENT: This is a 77-year-old female with marked hyperkalemia and underlying progressive azotemia with chronic kidney disease and is now being referred for evaluation of known history of hyperthyroidism, on medical therapy as noted. She most likely has underlying autoimmune thyroiditis with longstanding hyperthyroidism with a persistent suppressed TSH indicative of a suboptimal therapeutic regimen and persistent tachycardia as noted. PLAN OF MANAGEMENT: We will modify her methimazole to 10 mg b.i.d., especially with underlying sinus tachycardia and obtain a total T4 or thyroxine level which is a more accurate level to assess the degree of hyperthyroidism at this time. We will concur with the orders for the thyroid antibodies which will confirm and indicate the presence of underlying thyroid immunity. A thyroid ultrasound has also being obtained which will fully delineate the thyroid lobe dimensions and any subclinical nodules otherwise. We will follow and advised accordingly. Crystal Ho MD
--- NOTE | 2018-02-26 08:38 | CP.PCM.PN ---
Subjective - Date & Time of Evaluation Date of Evaluation: 02/26/18 Time of Evaluation: 08:00 - Subjective Subjective: PGY 1 Medicine Progress Note for Hospitalist Dr. Apple. Patient seen and examined at bedside. No overnight events reported. Patient den ies chest pain, nausea, vomiting, abdominal pain, constipation, hematuria, dysuria. Patient is scheduled for thyroid u/s and cardiac echo today. Objective - Vital Signs/Intake and Output Vital Signs (last 24 hours): Temp Pulse Resp BP Pulse Ox 98.0 F 76 20 147/68 97 02/26/18 07:00 02/26/18 08:07 02/26/18 07:00 02/26/18 07:00 02/26/18 07:00 Intake and Output: 02/26/18 02/26/18 06:59 18:59 Intake Total 480 Balance 480 - Medications Medications: Current Medications Albuterol/Ipratropium (Duoneb 3 Mg/0.5 Mg (3 Ml) Ud) 3 ml INH RQ6 [facility] Last Admin: 02/26/18 07:35 Dose: 3 ml Amlodipine Besylate (Norvasc) 10 mg PO DAILY [facility] Last Admin: 02/25/18 10:00 Dose: 10 mg Aspirin (Aspirin Chewable) 81 mg PO DAILY [facility] Last Admin: 02/25/18 10:00 Dose: 81 mg Clonidine HCl (Catapres) 0.1 mg PO TID [facility] Last Admin: 02/25/18 17:32 Dose: 0.1 mg Dextrose (Dextrose 50% Inj) 0 ml IV STAT PRN; Protocol PRN Reason: Hypoglycemia Protocol Dextrose (Glutose 15) 0 gm PO ONCE PRN; Protocol PRN Reason: Hypoglycemia Protocol Glucagon (Glucagen Diagnostic Kit) 0 mg IM STAT PRN; Protocol PRN Reason: Hypoglycemia Protocol Heparin Sodium (Porcine) (Heparin) 5,000 units SC Q12 [facility] Last Admin: 02/25/18 21:40 Dose: 5,000 units Dextrose (Dextrose 5% In Water 1000 Ml) 1,000 mls @ 0 mls/hr IV .Q0M PRN; Protocol PRN Reason: Hypoglycemia Protocol Last Admin: 02/24/18 15:59 Dose: 100 mls/hr Dextrose/Sodium Chloride (Dextrose 5%/0.45% Ns 1000 Ml) 1,000 mls @ 50 mls/hr IV .Q20H [facility] Last Admin: 02/25/18 19:03 Dose: 50 mls/hr Influenza Virus Vaccine (Fluzone Quad [id number]) 60 mcg IM .ONCE ONE Stop: 02/27/18 10:01 Methimazole (Tapazole) 10 mg PO BID [facility] Metoprolol Tartrate (Lopressor) 5 mg IVP Q6H PRN PRN Reason: Systolic Blood Pressure Multivitamins (Hexavitamin) 1 tab PO DAILY [facility] Last Admin: 02/25/18 10:00 Dose: 1 tab Psyllium Hydrophilic Mucilloid (Hydrocil Instant) 1 pkt PO QPM [facility] Last Admin: 02/25/18 17:32 Dose: 1 pkt Rosuvastatin Calcium (Crestor) 10 mg PO HS [facility] Last Admin: 02/25/18 21:40 Dose: 10 mg - Labs Labs: 02/25/18 07:24 02/25/18 13:53 - Constitutional Appears: Non-toxic, No Acute Distress - Head Exam Head Exam: NORMAL INSPECTION - Eye Exam Eye Exam: Normal appearance Pupil Exam: NORMAL ACCOMODATION - ENT Exam ENT Exam: Mucous Membranes Moist - Respiratory Exam Respiratory Exam: Clear to Ausculation Bilateral, NORMAL BREATHING PATTERN. absent: Rales, Rhonchi, Wheezes - Cardiovascular Exam Cardiovascular Exam: +S1, +S2. absent: Murmur - GI/Abdominal Exam GI & Abdominal Exam: Soft, Normal Bowel Sounds. absent: Guarding, Rigid, Hyperactive Bowel Sounds - Extremities Exam Extremities Exam: Full ROM, Normal Inspection. absent: Calf Tenderness, Pedal Edema - Back Exam Back Exam: absent: CVA tenderness (L), CVA tenderness (R) - Neurological Exam Neurological Exam: Alert, Awake, Oriented x3 - Psychiatric Exam Psychiatric exam: Normal Affect, Normal Mood - Skin Skin Exam: Dry, Intact, Normal Color, Warm Assessment and Plan - Assessment and Plan (Free Text) Assessment: 77 F w/ Pmhx of CKD, ?dementia, HTN, thyroid disorder present to ED after referral by her PMD for hyperkalemia. Hyperkalemia treated; however, continues to fluctuate. Additionally, patient has bouts of tachycardia, w/ TSH < 0.2, Hyperkalemia Hx of RTA Type 4 hypoaldosteronism Chronic Kidney Disease progression vs acute injury - K+ fluctuating, from 6.4 on admission to presently 5.4 - kaxalate 15gm PO once - D51/2NS @50ml/hr - BUN/Cr worsening since admission, initially 04/27, now 3.6 - F/u nephro, Dr. Cuevas recs - Hold Cozaar & Aldactone Anemia - hgb 9s to 10s; previously in 2017, 12s - Iron, Ferritin, TIBC MCV, wnl - likely secondary due to CKD - F/u Folate & Reticulocyte count - Per nephro: epoetin damien 27848 units Thyroid Disorder Tachycardia - TSH < 0.2, Free T4 0.91, Free T3 2.56 - Thyroid U/S: Right lobe: 4.6 x 1.1 x 1.6 centimeters. Heterogeneous echotexture. Normal flow. Multiple nodules:Midpole complex solid/cystic nodule with internal echogenic 4 millimeter calcification measuring 1.6 x 0.9 x 1.3 centimeters. Midpole heterogeneous solid echogenic nodule measuring 6 x 4 x 4 millimeters. Thyroid isthmus measures 1.8 millimeters. Heterogeneous echotexture. Normal flow. Left lobe: 4.3 x 1.2 x 1.5 centimeters. Heterogeneous echotexture. Normal flow. Multiple nodules: Lower pole complex solid echogenic nodule with internal cystic foci measuring 1.2 x 0.7 x 1.0 centimeters. Additional lower pole hypoechoic nodule with peripheral small nodular echogenic foci measuring 4 x 2 x 3 millimeters. - F/u TSI, TBI, T3, T4 - F/u endo Dr. Ho recs - increase methimazole 10 mg daily to BID - no radio uptake nucleotide scan required at this time - propranolol 5mg TID Weight Loss - significant weight loss 10+ pounds - Cancer vs thyroid disorder vs ? - per pt, had normal colonoscopy 2 years prior w/ Dr. Bone - TSH < 0.02, will f/u endo Dr. Churchill recs as above - Will consider scan for malignancy/ mass Diarrhea - infectious vs thyroid disorder - f/u C.diff, ova/parasites, & stool culture - See thyroid plan above Elevated BNP - BNP 2430 - ? CHF acute vs chronic; reserved EF vs reduced EF vs 2nd to renal failure - F/u echo Hypertension - per Dr. Cuevas, patient runs in SBP 180s - c/w home meidication clonidine 0.1 mg PO TID - Hold Cozaar & Aldactone - start amlodipine 5 mg Po daily - lopressor 5mg IVP Q6h PRN for SBP/ tachycardia - F/u Echo Dementia - stable - continue to monitor Prophylaxis - DVT: Heparin 5000 units Q12h - Diet- renal diet, non dialysis - Multivimine
[2018-02-26 09:03] LABS: BASO % 0.7 % (0.0-2.0); EOS # 0.3 K/uL (0.0-0.7); EOS % 5.9 % (0.0-4.0); HEMOGLOBIN 8.2 g/dL (11.0-16.0); LYMPH # 0.7 K/uL (1.0-4.3); LYMPH % 11.7 % (20.0-40.0); MEAN CELL VOLUME 90.1 fL (81.0-99.0); MEAN CORPUSCULAR HEMOGLOBIN 30.2 pg (27.0-31.0); MEAN CORPUSCULAR HGB CONC 33.5 g/dL (33.0-37.0); MEAN PLATELET VOLUME 7.4 fL (7.2-11.7); MONO # 0.5 K/uL (0.0-0.8); NEUT # 4.2 K/uL (1.8-7.0); NEUT % 73.7 % (50.0-75.0); RBC 2.71 Mil/uL (3.80-5.20); RED CELL DISTRIBUTION WIDTH 13.5 % (11.5-14.5); WHITE BLOOD COUNT 5.7 K/uL (4.8-10.8)
[2018-02-26 09:24] LABS: ALB/GLOB RATIO 1.2 (1.0-2.1); ALBUMIN 3.1 g/dL (3.5-5.0); ALT/SGPT 22 U/L (9-52); AST/SGOT 16 U/L (14-36); BLOOD UREA NITROGEN 42 mg/dL (7-17); CALCIUM 8.1 mg/dl (8.6-10.4); GFR NON-AFRICAN AMERICAN 12
[2018-02-26 09:25] LABS: B-TYPE NATRIURETIC PEPTIDE 2430 pg/mL (0-900)
[2018-02-26] MEDS: Propranolol 5 mg Tab PO SCH ×2 (09:46→17:48)
[2018-02-26] MEDS: Multiple Vitamins Tab PO SCH (09:47)
[2018-02-26 10:21] LABS: FOLATE 8.8 ng/mL
[2018-02-26] MEDS ORDERED: Sod Polystyrene Sulf 15 gm/60 ml Susp PO ONE (13:08)
[2018-02-26] MEDS ORDERED: Epoetin Alfa 10,000 unit/ml Dialysis SC ONE (13:10)
--- NOTE | 2018-02-26 13:19 | US ---
Thyroid ultrasound HISTORY: Thyrotoxicosis. Comparison: None available. Technique: Real-time sonography was performed through the thyroid. Findings: Right lobe: 4.6 x 1.1 x 1.6 centimeters. Heterogeneous echotexture. Normal flow. Multiple nodules: Midpole complex solid/cystic nodule with internal echogenic 4 millimeter calcification measuring 1.6 x 0.9 x 1.3 centimeters. Midpole heterogeneous solid echogenic nodule measuring 6 x 4 x 4 millimeters. Thyroid isthmus measures 1.8 millimeters. Heterogeneous echotexture. Normal flow. Left lobe: 4.3 x 1.2 x 1.5 centimeters. Heterogeneous echotexture. Normal flow. Multiple nodules: Lower pole complex solid echogenic nodule with internal cystic foci measuring 1.2 x 0.7 x 1.0 centimeters. Additional lower pole hypoechoic nodule with peripheral small nodular echogenic foci measuring 4 x 2 x 3 millimeters. Impression: Bilateral thyroid nodules as described above.
[2018-02-26] MEDS: Sodium Bicarbonate 8.4% 50 MEQ in Dextrose 5%/0.45% NS 1,000 ML IV SCH (13:39)
--- NOTE | 2018-02-26 15:04 | CARD ---
APPROVED REPORT Date of service: 02/24/2018 EKG Measurement Heart [id number] <Conclusion> Normal sinus rhythm Nonspecific ST abnormality Abnormal ECG
--- NOTE | 2018-02-26 15:06 | CARD ---
APPROVED REPORT Date of service: 02/24/2018 EKG Measurement Heart [id number] <Conclusion> Normal sinus rhythm Nonspecific ST abnormality Abnormal ECG
[2018-02-26 16:45] LABS: URINE BACTERIA OCC (<OCC); URINE BILIRUBIN NEGATIVE (NEGATIVE); URINE BLOOD NEGATIVE (NEGATIVE); URINE CLARITY Clear (Clear); URINE COLOR Straw (YELLOW); URINE GLUCOSE (UA) NORMAL (Normal); URINE LEUKOCYTE ESTERASE TRACE Leu/uL (Negative); URINE PROTEIN NEGATIVE (NEGATIVE); URINE UROBILINOGEN NORMAL mg/dL (0.2-1.0)
[2018-02-26] MEDS: Psyllium Packet PO SCH (17:48)
--- NOTE | 2018-02-26 17:57 | PN ---
DATE: 02/26/2018 ENDOCRINOLOGY FOLLOWUP NOTE LOCATION: Room 557. SUBJECTIVE: This is a 77-year-old female with known history of hyperthyroidism, presenting here with marked hyperkalemia with underlying chronic kidney disease and progressive renal insufficiency, and is now being followed closely for metabolic management. She also has been using Tapazole medications at home for management of hyperthyroidism. She admits to recent bouts of generalized body weakness with insomnia and destructive sleep patterns as noted. LABORATORY DATA: Her latest chemistry showed a BUN of 42, sodium 135, potassium 5.6, chloride 105, CO2 of 21, glucose 111, and creatinine 3.6. Her repeat thyroid studies showed a T4 of 5.5 with a free T4 of 0,78 and a TSH of less than 0,02 with serum cortisol of 14. Her ProBNP is 2430. Her serum albumin is 3.1, which would also falsely lower the thyroxine value because of the lower thyroxine binding globulin level as noted. ASSESSMENT: This is a 77-year-old female with subclinical hyperthyroidism and persistent thyroid stimulating hormone suppression with low normal thyroxine values because of underlying hypoalbuminemia, hypoalbuminemia causing falsely lower thyroxine binding globulin levels. She also has concomitant evidence of congestive heart failure with underlying aggressive renal insufficiency with marked hyperkalemia because of chronic kidney disease as noted. PLAN OF MANAGEMENT: We will continue the modified dosing of the Tapazole given as 10 mg b.i.d. after meals as ordered and titrate accordingly to optimize metabolic control. It takes a few weeks for full dose equilibration to the modified dose regimen as given. We will obtain serial chemistries and supplement accordingly as needed. We will also obtain serial thyroid studies and then titrate dose regimen accordingly. We are waiting the thyroid antibodies which will confirm and/or indicate the patterns of underlying thyroid autoimmunity. We will follow. Crystal Ho MD
--- NOTE | 2018-02-26 18:09 | CARD ---
APPROVED REPORT Date of service: 02/25/2018 EKG Measurement Heart [id number] <Conclusion> Sinus tachycardia Left axis deviation Inferior infarct, age undetermined Non specific ST abnormality, Abnormal ECG
--- NOTE | 2018-02-26 22:02 | CP.PCM.PN ---
Subjective - Date & Time of Evaluation Date of Evaluation: 02/26/18 Time of Evaluation: 13:00 - Subjective Subjective: Patient reportedly feels well; per nursing staff, eating about half of her meals; urinating well; Objective - Vital Signs/Intake and Output Vital Signs (last 24 hours): Temp Pulse Resp BP Pulse Ox 97.9 F 75 20 127/70 100 02/26/18 16:04 02/26/18 16:04 02/26/18 16:04 02/26/18 16:04 02/26/18 16:04 - Medications Medications: Current Medications Albuterol/Ipratropium (Duoneb 3 Mg/0.5 Mg (3 Ml) Ud) 3 ml INH RQ6 [facility] Last Admin: 02/26/18 13:35 Dose: 3 ml Amlodipine Besylate (Norvasc) 10 mg PO DAILY [facility] Last Admin: 02/26/18 09:47 Dose: 10 mg Aspirin (Aspirin Chewable) 81 mg PO DAILY [facility] Last Admin: 02/26/18 09:48 Dose: 81 mg Clonidine HCl (Catapres) 0.1 mg PO TID [facility] Last Admin: 02/26/18 17:48 Dose: 0.1 mg Dextrose (Dextrose 50% Inj) 0 ml IV STAT PRN; Protocol PRN Reason: Hypoglycemia Protocol Dextrose (Glutose 15) 0 gm PO ONCE PRN; Protocol PRN Reason: Hypoglycemia Protocol Glucagon (Glucagen Diagnostic Kit) 0 mg IM STAT PRN; Protocol PRN Reason: Hypoglycemia Protocol Heparin Sodium (Porcine) (Heparin) 5,000 units SC Q12 [facility] Last Admin: 02/26/18 21:11 Dose: 5,000 units Dextrose (Dextrose 5% In Water 1000 Ml) 1,000 mls @ 0 mls/hr IV .Q0M PRN; Protocol PRN Reason: Hypoglycemia Protocol Last Admin: 02/24/18 15:59 Dose: 100 mls/hr Sodium Bicarbonate 50 meq/ (Dextrose/Sodium Chloride) 1,050 mls @ 50 mls/hr IV .Q21H [facility] Last Admin: 02/26/18 13:39 Dose: 50 mls/hr Influenza Virus Vaccine (Fluzone Quad [id number]) 60 mcg IM .ONCE ONE Stop: 02/27/18 10:01 Methimazole (Tapazole) 10 mg PO BID [facility] Last Admin: 02/26/18 17:48 Dose: 10 mg Metoprolol Tartrate (Lopressor) 5 mg IVP Q6H PRN PRN Reason: Systolic Blood Pressure Multivitamins (Hexavitamin) 1 tab PO DAILY [facility] Last Admin: 02/26/18 09:47 Dose: 1 tab Propranolol HCl (Inderal) 5 mg PO TID [facility] Last Admin: 02/26/18 17:48 Dose: 5 mg Psyllium Hydrophilic Mucilloid (Hydrocil Instant) 1 pkt PO QPM [facility] Last Admin: 02/26/18 17:48 Dose: 1 pkt Rosuvastatin Calcium (Crestor) 10 mg PO HS [facility] Last Admin: 02/26/18 21:11 Dose: 10 mg - Labs Labs: 02/26/18 08:49 02/26/18 08:49 - Constitutional Appears: Non-toxic, No Acute Distress - Eye Exam Eye Exam: Normal appearance - Respiratory Exam Respiratory Exam: Clear to Ausculation Bilateral. absent: Respiratory Distress - Cardiovascular Exam Cardiovascular Exam: RRR, +S1, +S2 - GI/Abdominal Exam GI & Abdominal Exam: Soft. absent: Distended, Tenderness - Extremities Exam Additional comments: no leg edema; - Neurological Exam Neurological Exam: Alert, Awake - Psychiatric Exam Psychiatric exam: Normal Mood. absent: Agitated - Skin Skin Exam: Warm. absent: Cyanosis Assessment and Plan (1) Acute on chronic renal failure Assessment & Plan: YOU on CKD IV; renal function had worsened within the past couple of months with serum creatinine increasing from 2.2 -> 2.8 which may explain why hyperkalemia has occurred (otherwise, potassium had been normal on extensive DOMINIQUE blockade); renal function continues to worsen with creat up to 3.6; etiology is unclear but possibly due to "normotensive ATN" with BP decreasing to normal range (also unclear why BP is so well controlled while it is usually extremely high in the office); Discussed with patient/family that there is a possibility of needing to initiate dialysis if renal function doesn't recover; additionally, eGFR may be greatly overestimated in this patient with very low body mass; will need to obtain CrCl once renal function stabilizes; -Treating hyperkalemia with kayexalate, bicarb containing IVF; low K diet; -Avoid nephrotoxic agents (no NSAIDS); -will continue to monitor closely; Status: Acute (2) Hyperkalemia Assessment & Plan: see above; Status: Acute (3) HTN (hypertension) Assessment & Plan: Currently controlled on propranolol, clondine and amlodipine, continue same; continue to hold all DOMINIQUE blockade meds; Status: Acute (4) Anemia Assessment & Plan: Progressive, due to advanced CKD; iron replete; giving dose of EPO today; Status: Acute
[2018-02-27] MEDS: Albuterol-Ipratrop 3 mg / 0.5 (3 ml) UD INH SCH ×4 (01:14→19:25)
--- NOTE | 2018-02-27 07:14 | CP.PCM.PN ---
Subjective - Date & Time of Evaluation Date of Evaluation: 02/27/18 Time of Evaluation: 08:30 - Subjective Subjective: PGY1 Medicine Progress Note for Hospitalist Dr. Apple. Patient seen and examined at bedside. No overnight events reported. Patient stat es her diarrhea is resolved. Patient does not have any complaints. Patient denies chest pain, SOB, nausea, vomiting, abdominal pain, headaches, vision changes. Objective - Vital Signs/Intake and Output Vital Signs (last 24 hours): Temp Pulse Resp BP Pulse Ox 97.8 F 60 20 133/66 96 02/26/18 23:40 02/26/18 23:40 02/26/18 23:40 02/26/18 23:40 02/26/18 23:40 Intake and Output: 02/27/18 02/27/18 06:59 18:59 Intake Total 800 Balance 800 - Medications Medications: Current Medications Albuterol/Ipratropium (Duoneb 3 Mg/0.5 Mg (3 Ml) Ud) 3 ml INH RQ6 [facility] Last Admin: 02/27/18 01:14 Dose: Not Given Amlodipine Besylate (Norvasc) 10 mg PO DAILY [facility] Last Admin: 02/26/18 09:47 Dose: 10 mg Aspirin (Aspirin Chewable) 81 mg PO DAILY [facility] Last Admin: 02/26/18 09:48 Dose: 81 mg Clonidine HCl (Catapres) 0.1 mg PO TID [facility] Last Admin: 02/26/18 17:48 Dose: 0.1 mg Dextrose (Dextrose 50% Inj) 0 ml IV STAT PRN; Protocol PRN Reason: Hypoglycemia Protocol Dextrose (Glutose 15) 0 gm PO ONCE PRN; Protocol PRN Reason: Hypoglycemia Protocol Glucagon (Glucagen Diagnostic Kit) 0 mg IM STAT PRN; Protocol PRN Reason: Hypoglycemia Protocol Heparin Sodium (Porcine) (Heparin) 5,000 units SC Q12 [facility] Last Admin: 02/26/18 21:11 Dose: 5,000 units Dextrose (Dextrose 5% In Water 1000 Ml) 1,000 mls @ 0 mls/hr IV .Q0M PRN; Pro tocol PRN Reason: Hypoglycemia Protocol Last Admin: 02/24/18 15:59 Dose: 100 mls/hr Sodium Bicarbonate 50 meq/ (Dextrose/Sodium Chloride) 1,050 mls @ 50 mls/hr IV .Q21H [facility] Last Admin: 02/26/18 13:39 Dose: 50 mls/hr Influenza Virus Vaccine (Fluzone Quad [id number]) 60 mcg IM .ONCE ONE Stop: 02/27/18 10:01 Methimazole (Tapazole) 10 mg PO BID [facility] Last Admin: 02/26/18 17:48 Dose: 10 mg Metoprolol Tartrate (Lopressor) 5 mg IVP Q6H PRN PRN Reason: Systolic Blood Pressure Multivitamins (Hexavitamin) 1 tab PO DAILY [facility] Last Admin: 02/26/18 09:47 Dose: 1 tab Propranolol HCl (Inderal) 5 mg PO TID [facility] Last Admin: 02/26/18 17:48 Dose: 5 mg Psyllium Hydrophilic Mucilloid (Hydrocil Instant) 1 pkt PO QPM [facility] Last Admin: 02/26/18 17:48 Dose: 1 pkt Rosuvastatin Calcium (Crestor) 10 mg PO HS [facility] Last Admin: 02/26/18 21:11 Dose: 10 mg - Labs Labs: 02/26/18 08:49 02/26/18 08:49 - Constitutional Appears: Non-toxic, No Acute Distress, Cachectic - Head Exam Head Exam: ATRAUMATIC, NORMAL INSPECTION - Eye Exam Eye Exam: Normal appearance - ENT Exam ENT Exam: Mucous Membranes Moist - Respiratory Exam Respiratory Exam: Clear to Ausculation Bilateral, NORMAL BREATHING PATTERN. abs ent: Rales, Rhonchi, Wheezes - Cardiovascular Exam Cardiovascular Exam: +S1, +S2. absent: Murmur - GI/Abdominal Exam GI & Abdominal Exam: Soft, Normal Bowel Sounds - Extremities Exam Extremities Exam: Full ROM, Normal Inspection. absent: Calf Tenderness, Pedal Edema - Neurological Exam Neurological Exam: Alert, Awake, Oriented x3 - Psychiatric Exam Psychiatric exam: Normal Affect, Normal Mood - Skin Skin Exam: Dry, Intact, Normal Color, Warm Assessment and Plan - Assessment and Plan (Free Text) Assessment: 77 F w/ Pmhx of CKD, ?dementia, HTN, thyroid disorder present to ED after referral by her PMD for hyperkalemia. Hyperkalemia treated; however, continues to fluctuate. Additionally, patient has bouts of tachycardia, w/ TSH < 0.2, Hyperkalemia Chronic Kidney Disease progression vs acute injury - K+ fluctuating, from 6.4 on admission to presently in 4s - following multiple kayexalate - BUN/Cr initially worsening, now improving - F/u nephro, Dr. Cuevas recs - Hold Cozaar & Aldactone - consider dialysis pending Cr change - 24 hour urine collection of creatine/ protein Anemia - hgb 9s to 10s; previously in 2017, 12s - Iron, Ferritin, TIBC MCV, wnl - likely secondary due to CKD - F/u Folate & Reticulocyte count - Per nephro: epoetin damien 50521 units Thyroid Disorder Tachycardia - Resolved - TSH < 0.2, Free T4 0.91, Free T3 2.56 - Thyroid U/S: Right lobe: 4.6 x 1.1 x 1.6 centimeters. Heterogeneous echotexture. Normal flow. Multiple nodules:Midpole complex solid/cystic nodule with internal echogenic 4 millimeter calcification measuring 1.6 x 0.9 x 1.3 centimeters. Midpole heterogeneous solid echogenic nodule measuring 6 x 4 x 4 millimeters. Thyroid isthmus measures 1.8 millimeters. Heterogeneous echotexture. Normal flow. Left lobe: 4.3 x 1.2 x 1.5 centimeters. Heterogeneous echotexture. Normal flow. Multiple nodules: Lower pole complex solid echogenic nodule with internal cystic foci measuring 1.2 x 0.7 x 1.0 centimeters. Additional lower pole hypoechoic nodule with peripheral small nodular echogenic foci measuring 4 x 2 x 3 millimeters. - F/u TSI, TBI, T3, T4 - F/u endo Dr. Ho recs - increase methimazole 10 mg daily to BID - no radio uptake nucleotide scan required at this time - propranolol 5mg TID Weight Loss - significant weight loss 10+ pounds - Cancer vs thyroid disorder vs ? - per pt, had normal colonoscopy 2 years prior w/ Dr. Bone - TSH < 0.02, will f/u endo Dr. Churchill recs as above - Will consider scan for malignancy/ mass Diarrhea - infectious vs thyroid disorder - f/u C.diff, ova/parasites, & stool culture - See thyroid plan above Elevated BNP - BNP 2430 - ? CHF acute vs chronic; reserved EF vs reduced EF vs 2nd to renal failure - F/u echo Hypertension - per Dr. Cuevas, patient runs in SBP 180s - c/w home meidication clonidine 0.1 mg PO TID - Hold Cozaar & Aldactone - start amlodipine 5 mg Po daily - lopressor 5mg IVP Q6h PRN for SBP/ tachycardia - F/u Echo Dementia - stable - continue to monitor Prophylaxis - DVT: Heparin 5000 units Q12h - Diet- renal diet, non dialysis - Multivimin
[2018-02-27 08:48] LABS: BASO % 0.5 % (0.0-2.0); EOS # 0.6 K/uL (0.0-0.7); EOS % 10.1 % (0.0-4.0); LYMPH # 0.7 K/uL (1.0-4.3); LYMPH % 12.6 % (20.0-40.0); MEAN CELL VOLUME 89.1 fL (81.0-99.0); MEAN CORPUSCULAR HEMOGLOBIN 30.2 pg (27.0-31.0); MEAN CORPUSCULAR HGB CONC 33.9 g/dL (33.0-37.0); MEAN PLATELET VOLUME 7.3 fL (7.2-11.7); MONO # 0.5 K/uL (0.0-0.8); MONO % 8.3 % (0.0-10.0); NEUT # 3.9 K/uL (1.8-7.0); NEUT % 68.5 % (50.0-75.0); RBC 2.64 Mil/uL (3.80-5.20); RED CELL DISTRIBUTION WIDTH 13.2 % (11.5-14.5); WHITE BLOOD COUNT 5.6 K/uL (4.8-10.8)
[2018-02-27 09:09] LABS: ALB/GLOB RATIO 1.1 (1.0-2.1); ALBUMIN 2.7 g/dL (3.5-5.0); CALCIUM 7.9 mg/dl (8.6-10.4)
[2018-02-27] MEDS ORDERED: Influenza Virus Vaccine 45 mcg/0.5 ml Syr (36 months - 7 yrs) IM ONE (10:00)
[2018-02-27] MEDS ORDERED: Influenza Vaccine 60 MCG/0.5 ML SYR (3 yr & up) IM ONE (10:00)
[2018-02-27] MEDS: Multiple Vitamins Tab PO SCH (10:32)
[2018-02-27] MEDS: Sodium Bicarbonate 8.4% 50 MEQ in Dextrose 5%/0.45% NS 1,000 ML IV SCH ×2 (10:39→14:50)
[2018-02-27] MEDS: Propranolol 5 mg Tab PO SCH ×3 (10:39→18:06)
--- NOTE | 2018-02-27 14:55 | CARD ---
APPROVED REPORT Date of service: 02/25/2018 EKG Measurement Heart [id number] <Conclusion> Sinus bradycardia Otherwise normal ECG
[2018-02-27] MEDS: Psyllium Packet PO SCH (18:09)
--- NOTE | 2018-02-27 20:13 | PN ---
DATE: 02/27/2018 ENDOCRINOLOGY FOLLOWUP NOTE LOCATION: Room 557. SUBJECTIVE: This is a 77-year-old female admitted with marked hyperkalemia and progressive renal insufficiency and also concomitant sinus tachycardia with persistent hyperthyroidism, and is now being followed closely for metabolic management. Her thyroid ultrasound undertaken showed the presence of right lobe measuring 4.6 x 1.1 cm and multiple small nodules as noted. The left lobe measured 4.3 x 1.2 cm, also with small multiple nodules as noted. LABORATORY DATA: Her latest chemistry showed a BUN of 33, sodium 135, potassium 4.3, chloride 104, CO2 of 24, glucose 99, and creatinine 2.6. Her glucose values have ranged from 99 to 104 mg/dL. Her latest thyroid studies showed a T4 of 5.5 with TSH of less than 0.02 and a free T4 of 0.78 with serum cortisol of 14. Her albumin levels are low at 3.1. ASSESSMENT: This is a 77-year-old female with subclinical hyperthyroidism, presenting here with sinus tachycardia and concomitant marked hyperkalemia related to progressive renal insufficiency with underlying chronic kidney disease. She also has sonographic evidence of a multinodular goiter with small bilateral nodules consistent with the so called toxic multinodular goiter with no overt neck compressive symptoms thereof. PLAN OF MANAGEMENT: We will continue the Tapazole given as 10 mg b.i.d. after meals as ordered. We will obtain serial chemistries and supplement accordingly as needed. We will obtain serial thyroid studies and titrate her dose regimen accordingly. For the meantime, we will the Tapazole given as 10 mg b.i.d. as ordered. We will await the thyroid antibodies, which will confirm the presence of underlying thyroid autoimmunity. We will follow. Crystal Ho MD
--- NOTE | 2018-02-27 22:19 | CARD ---
APPROVED REPORT Date of service: 02/27/2018 EXAM: Two-dimensional and M-mode echocardiogram with Doppler and color Doppler. Other Information Quality : GoodRhythm : INDICATION Status/Post AK tachycardia, ckd,r/o structural abdnorm RISK FACTORS Hypertension 2D DIMENSIONS IVSd1.2 (0.7-1.1cm)LVDd3.9 (3.9-5.9cm) PWd0.9 (0.7-1.1cm)LA Nkaflo35 (18-58mL) LVDs2.4 (2.5-4.0cm)FS (%) 37.9 % LVEF (%)68.7 (>50%)LVEF (Dominguez's)61.67 % M-Mode DIMENSIONS Left Atrium (MM)3.65 (2.5-4.0cm)IVSd1.22 (0.7-1.1cm) Aortic Root3.55 (2.2-3.7cm)LVDd5.03 (4.0-5.6cm) Aortic Cusp Exc.2.00 (1.5-2.0cm)PWd1.12 (0.7-1.1cm) FS (%) 32 %LVDs3.40 (2.0-3.8cm) LVEF (%)60 (>50%) Mitral Valve MV E Batbmpfw16.8cm/sMV A Rrdmpkfh679.2cm/sE/A ratio0.7 TDI Lateral E' Peak V7.13cm/sMedial E' Peak V4.22cm/sE/Lateral E'10.1 E/Medial E'17.0 Tricuspid Valve TR Peak Cahjxkcz531sg/sTR Peak Gr.[id number] LEFT VENTRICLE The left ventricle is borderline enlarged. There is borderline concentric left ventricular hypertrophy. Left ventricle systolic function is normal. The Ejection Fraction is 60-65%. There is normal LV segmental wall motion. The left ventricular diastolic function is abnormal- Grade I-abnormal relaxation pattern. No left ventricle thrombus noted on this study. There is no ventricular septal defect visualized. RIGHT VENTRICLE The right ventricle is normal size. The right ventricular systolic function is normal. ATRIA The left atrium size is normal. The right atrium size is normal. AORTIC VALVE The aortic valve is mildly sclerotic. The aortic valve is trileaflet. No aortic regurgitation is present. There is no aortic valvular stenosis. MITRAL VALVE Mitral annular calcification is mild to moderate. There is no evidence of mitral valve prolapse. There is no mitral valve stenosis. Mitral regurgitation is trace to mild. TRICUSPID VALVE The tricuspid valve is normal in structure. There is mild tricuspid regurgitation. Right ventricular systolic pressure is estimated at less than 30 mmHg. There is no pulmonary hypertension. There is no tricuspid valve prolapse or vegetation. There is no tricuspid valve stenosis. PULMONIC VALVE The pulmonary valve is normal in structure. There is no pulmonic valvular regurgitation. There is no pulmonic valvular stenosis. GREAT VESSELS The aortic root is normal in size. The IVC is normal in size and collapses >50% with inspiration. PERICARDIAL EFFUSION There is no pericardial effusion. There is no pleural effusion. <Conclusion> The left ventricle is borderline enlarged. There is borderline concentric left ventricular hypertrophy. Left ventricle systolic function is normal. The Ejection Fraction is 60-65%. The left ventricular diastolic function is abnormal- Grade I-abnormal relaxation pattern. The right ventricle is normal size. The right ventricular systolic function is normal. The left and right atrium size is normal. Mitral regurgitation is trace to mild. There is mild tricuspid regurgitation
[2018-02-28 00:18] VITALS: O2SAT 99
[2018-02-28] MEDS: Albuterol-Ipratrop 3 mg / 0.5 (3 ml) UD INH SCH ×3 (01:07→13:40)
[2018-02-28 06:34] LABS: BASO % 0.4 % (0.0-2.0); EOS # 0.5 K/uL (0.0-0.7); LYMPH # 0.8 K/uL (1.0-4.3); LYMPH % 11.1 % (20.0-40.0); MEAN CELL VOLUME 89.2 fL (81.0-99.0); MEAN CORPUSCULAR HEMOGLOBIN 30.5 pg (27.0-31.0); MEAN CORPUSCULAR HGB CONC 34.2 g/dL (33.0-37.0); MEAN PLATELET VOLUME 6.9 fL (7.2-11.7); MONO # 0.7 K/uL (0.0-0.8); MONO % 9.8 % (0.0-10.0); NEUT # 5.2 K/uL (1.8-7.0); NEUT % 71.7 % (50.0-75.0); RBC 2.63 Mil/uL (3.80-5.20); RED CELL DISTRIBUTION WIDTH 13.4 % (11.5-14.5); WHITE BLOOD COUNT 7.2 K/uL (4.8-10.8)
[2018-02-28 07:18] LABS: ALB/GLOB RATIO 1.3 (1.0-2.1); ALBUMIN 2.9 g/dL (3.5-5.0)
--- NOTE | 2018-02-28 07:20 | CP.PCM.PN ---
Objective - Vital Signs/Intake and Output Vital Signs (last 24 hours): Temp Pulse Resp BP Pulse Ox 98.2 F 80 20 126/67 99 02/27/18 23:23 02/27/18 23:30 02/27/18 23:23 02/27/18 23:23 02/27/18 23:23 Intake and Output: 02/28/18 02/28/18 06:59 18:59 Intake Total 400 Balance 400 - Medications Medications: Current Medications Albuterol/Ipratropium (Duoneb 3 Mg/0.5 Mg (3 Ml) Ud) 3 ml INH RQ6 [facility] Last Admin: 02/27/18 19:25 Dose: 3 ml Amlodipine Besylate (Norvasc) 10 mg PO DAILY [facility] Last Admin: 02/27/18 10:32 Dose: 10 mg Aspirin (Aspirin Chewable) 81 mg PO DAILY [facility] Last Admin: 02/27/18 10:32 Dose: 81 mg Clonidine HCl (Catapres) 0.1 mg PO TID [facility] Last Admin: 02/27/18 18:06 Dose: Not Given Dextrose (Dextrose 50% Inj) 0 ml IV STAT PRN; Protocol PRN Reason: Hypoglycemia Protocol Dextrose (Glutose 15) 0 gm PO ONCE PRN; Protocol PRN Reason: Hypoglycemia Protocol Glucagon (Glucagen Diagnostic Kit) 0 mg IM STAT PRN; Protocol PRN Reason: Hypoglycemia Protocol Heparin Sodium (Porcine) (Heparin) 5,000 units SC Q12 [facility] Last Admin: 02/27/18 22:33 Dose: 5,000 units Sodium Bicarbonate 50 meq/ (Dextrose/Sodium Chloride) 1,050 mls @ 50 mls/hr IV .Q21H [facility] Last Admin: 02/27/18 14:50 Dose: 50 mls/hr Methimazole (Tapazole) 10 mg PO BID [facility] Last Admin: 02/27/18 18:08 Dose: 10 mg Metoprolol Tartrate (Lopressor) 5 mg IVP Q6H PRN PRN Reason: Systolic Blood Pressure Multivitamins (Hexavitamin) 1 tab PO DAILY [facility] Last Admin: 02/27/18 10:32 Dose: 1 tab Propranolol HCl (Inderal) 5 mg PO TID [facility] Last Admin: 02/27/18 18:06 Dose: Not Given Psyllium Hydrophilic Mucilloid (Hydrocil Instant) 1 pkt PO QPM [facility] Last Admin: 02/27/18 18:09 Dose: 1 pkt Rosuvastatin Calcium (Crestor) 10 mg PO HS [facility] Last Admin: 02/27/18 22:32 Dose: 10 mg - Labs Labs: 02/28/18 06:25 02/28/18 06:25
--- NOTE | 2018-02-28 08:07 | CP.PCM.PN ---
Subjective - Date & Time of Evaluation Date of Evaluation: 02/27/18 Time of Evaluation: 13:00 - Subjective Subjective: Patient reports feeling well; tolerating diet; no breathing issues; Objective - Vital Signs/Intake and Output Vital Signs (last 24 hours): Temp Pulse Resp BP Pulse Ox 98.2 F 80 20 126/67 99 02/27/18 23:23 02/27/18 23:30 02/27/18 23:23 02/27/18 23:23 02/27/18 23:23 Intake and Output: 02/28/18 02/28/18 06:59 18:59 Intake Total 400 Balance 400 - Medications Medications: Current Medications Albuterol/Ipratropium (Duoneb 3 Mg/0.5 Mg (3 Ml) Ud) 3 ml INH RQ6 [facility] Last Admin: 02/28/18 01:07 Dose: Not Given Amlodipine Besylate (Norvasc) 10 mg PO DAILY [facility] Last Admin: 02/27/18 10:32 Dose: 10 mg Aspirin (Aspirin Chewable) 81 mg PO DAILY [facility] Last Admin: 02/27/18 10:32 Dose: 81 mg Clonidine HCl (Catapres) 0.1 mg PO TID [facility] Last Admin: 02/27/18 18:06 Dose: Not Given Dextrose (Dextrose 50% Inj) 0 ml IV STAT PRN; Protocol PRN Reason: Hypoglycemia Protocol Dextrose (Glutose 15) 0 gm PO ONCE PRN; Protocol PRN Reason: Hypoglycemia Protocol Glucagon (Glucagen Diagnostic Kit) 0 mg IM STAT PRN; Protocol PRN Reason: Hypoglycemia Protocol Heparin Sodium (Porcine) (Heparin) 5,000 units SC Q12 [facility] Last Admin: 02/27/18 22:33 Dose: 5,000 units Sodium Bicarbonate 50 meq/ (Dextrose/Sodium Chloride) 1,050 mls @ 50 mls/hr IV .Q21H [facility] Last Admin: 02/27/18 14:50 Dose: 50 mls/hr Methimazole (Tapazole) 10 mg PO BID [facility] Last Admin: 02/27/18 18:08 Dose: 10 mg Metoprolol Tartrate (Lopressor) 5 mg IVP Q6H PRN PRN Reason: Systolic Blood Pressure Multivitamins (Hexavitamin) 1 tab PO DAILY [facility] Last Admin: 02/27/18 10:32 Dose: 1 tab Propranolol HCl (Inderal) 5 mg PO TID [facility] Last Admin: 02/27/18 18:06 Dose: Not Given Psyllium Hydrophilic Mucilloid (Hydrocil Instant) 1 pkt PO QPM [facility] Last Admin: 02/27/18 18:09 Dose: 1 pkt Rosuvastatin Calcium (Crestor) 10 mg PO HS [facility] Last Admin: 02/27/18 22:32 Dose: 10 mg - Labs Labs: 02/28/18 06:25 02/28/18 06:25 - Constitutional Appears: Non-toxic, No Acute Distress - Eye Exam Eye Exam: Normal appearance - ENT Exam ENT Exam: Mucous Membranes Moist - Respiratory Exam Respiratory Exam: Clear to Ausculation Bilateral. absent: Respiratory Distress - Cardiovascular Exam Cardiovascular Exam: RRR, +S1, +S2 - GI/Abdominal Exam GI & Abdominal Exam: Soft. absent: Distended, Tenderness - Extremities Exam Additional comments: no leg edema; - Neurological Exam Neurological Exam: Alert, Awake - Psychiatric Exam Psychiatric exam: Normal Mood. absent: Agitated - Skin Skin Exam: Warm. absent: Cyanosis Assessment and Plan (1) Acute on chronic renal failure Assessment & Plan: Resolving; may have had some degree of pre-renal component, improved with IVF; hyperkalemia resolved; stable volume and electrolyte status; -continue with IVF; -avoid nephrotoxic agents; -24 hr urine in progress for CrCl, proteinuria; Status: Acute (2) Hyperkalemia Status: Resolved (3) HTN (hypertension) Assessment & Plan: Surprisingly normotensive during this admission lately; possibly improved with better control of hyperthyroidism; currently off all DOMINIQUE blockade and diuretics, will continue to hold; continue rest of meds; -repeating plasma yovani/renin activity level now that patient is volume replete (previously positive screen for hyperaldosteronism); -obtaining 24 hr urine for sodium and aldosterone; Status: Acute (4) Anemia Assessment & Plan: Hgb below goal, s/p single dose of EPO yesterday, will re-dose before d/c; Status: Acute
[2018-02-28 08:15] VITALS: TEMP 97.9
[2018-02-28] MEDS: Sodium Bicarbonate 8.4% 50 MEQ in Dextrose 5%/0.45% NS 1,000 ML IV SCH (08:42)
[2018-02-28 08:47] VITALS: PULSE 70
[2018-02-28 10:48] VITALS: BP 149/75
[2018-02-28] MEDS: Multiple Vitamins Tab PO SCH (10:49)
[2018-02-28] MEDS: Propranolol 5 mg Tab PO SCH ×2 (10:59→13:39)
[2018-02-28 11:48] LABS: URINE CREATININE 50.4 mg/dL
[2018-02-28 12:22] LABS: U CREAT 24HOUR URINE 604.8 mg/24hr (800-2800); URINE CREATININE 50.4 mg/dL
--- NOTE | 2018-02-28 14:32 | CP.PCM.DIS ---
Provider - Provider Date of Admission: 02/27/18 16:31 Attending physician: Lance Apple MD Primary care physician: Dr. Monsivais Consults: 02/24/18 17:04 Nephrology Consult Routine Comment: Consulting Provider: Lenin Cuevas Consulting Physician: Lenin Cuevas Reason for Consult: CKD, HYPERKALEMIA 02/25/18 15:26 Endocrinology Consult Routine Comment: Consulting Provider: Crystal Ho Consulting Physician: Crystal Ho Reason for Consult: hyperthyroidism, tachcardia (on methiazole) 02/25/18 18:24 Endocrinology Consult Routine Comment: Consulting Provider: Crystal Ho Consulting Physician: Crystal Ho Reason for Consult: hyperthyroidism, weight loss, tachycardia Time Spent in preparation of Discharge (in minutes): 45 Diagnosis - Discharge Diagnosis (1) Acute on chronic renal failure Status: Acute Comment: Improved with medical management, d/c aldactone (2) Hyperkalemia Status: Resolved Comment: normalized K+, WNL on discharge. Hospital Course - Lab Results Lab Results: Most Recent Lab Values WBC 7.2 K/uL (4.8-10.8) 02/28/18 06:25 RBC 2.63 Mil/uL (3.80-5.20) L 02/28/18 06:25 Hgb 8.0 g/dL (11.0-16.0) L 02/28/18 06:25 Hct 23.5 % (34.0-47.0) L 02/28/18 06:25 MCV 89.2 fL (81.0-99.0) 02/28/18 06:25 MCH 30.5 pg (27.0-31.0) 02/28/18 06:25 MCHC 34.2 g/dL (33.0-37.0) 02/28/18 06:25 RDW 13.4 % (11.5-14.5) 02/28/18 06:25 Plt Count 191 K/uL (130-400) 02/28/18 06:25 MPV 6.9 fL (7.2-11.7) L 02/28/18 06:25 Neut % (Auto) 71.7 % (50.0-75.0) 02/28/18 06:25 Lymph % (Auto) 11.1 % (20.0-40.0) L 02/28/18 06:25 [place] % (Auto) 9.8 % (0.0-10.0) 02/28/18 06:25 Eos % (Auto) 7.0 % (0.0-4.0) H 02/28/18 06:25 Baso % (Auto) 0.4 % (0.0-2.0) 02/28/18 06:25 Neut # (Auto) 5.2 K/uL (1.8-7.0) 02/28/18 06:25 Lymph # (Auto) 0.8 K/uL (1.0-4.3) L 02/28/18 06:25 [place] # (Auto) 0.7 K/uL (0.0-0.8) 02/28/18 06:25 Eos # (Auto) 0.5 K/uL (0.0-0.7) 02/28/18 06:25 Baso # (Auto) 0.0 K/uL (0.0-0.2) 02/28/18 06:25 Retic Count 1.3 % (0.5-1.5) 02/26/18 08:49 Sodium 135 mmol/L (132-148) 02/28/18 06:25 Potassium 3.7 mmol/L (3.6-5.2) 02/28/18 06:25 Chloride 104 mmol/L (98-107) 02/28/18 06:25 Carbon Dioxide 24 mmol/L (22-30) 02/28/18 06:25 Anion Gap 11 (10-20) 02/28/18 06:25 BUN 35 mg/dL (7-17) H 02/28/18 06:25 Creatinine 1.9 mg/dL (0.7-1.2) H 02/28/18 11:13 Est GFR ( Amer) 31 02/28/18 06:25 Est GFR (Non-Af Amer) 26 02/28/18 06:25 POC Glucose (mg/dL) 119 mg/dL (65-110) H 02/28/18 12:03 Random Glucose 100 mg/dL (65-105) 02/28/18 06:25 Calcium 8.0 mg/dl (8.6-10.4) L 02/28/18 06:25 Phosphorus 3.1 mg/dL (2.5-4.5) 02/28/18 06:25 Magnesium 1.8 mg/dL (1.6-2.3) 02/28/18 06:25 Iron 88 ug/dL (37-170) 02/25/18 13:53 TIBC 264 ug/dL (250-450) 02/25/18 13:53 % Saturation 33 (20-55) 02/25/18 13:53 Ferritin 235.0 ng/mL 02/25/18 13:53 Total Bilirubin 0.2 mg/dL (0.2-1.3) 02/28/18 06:25 AST 25 U/L (14-36) 02/28/18 06:25 ALT 21 U/L (9-52) 02/28/18 06:25 Alkaline Phosphatase 36 U/L (38-126) L 02/28/18 06:25 Total Creatine Kinase 68 U/L (30-135) 02/25/18 00:24 CK-MB (Mass) 1.89 ng/mL (0.0-3.38) 02/25/18 00:24 Troponin I 0.0380 ng/mL (0.00-0.120) 02/25/18 00:24 NT-Pro-B Natriuret Pep 2430 pg/mL (0-900) H 02/26/18 08:49 Total Protein 5.2 g/dL (6.3-8.3) L 02/28/18 06:25 Albumin 2.9 g/dL (3.5-5.0) L 02/28/18 06:25 Globulin 2.3 gm/dL (2.2-3.9) 02/28/18 06:25 Albumin/Globulin Ratio 1.3 (1.0-2.1) 02/28/18 06:25 25-OH Vitamin D Total 55.7 NG/ML (30.0-100.0) 02/25/18 13:53 Folate 8.8 ng/mL 02/26/18 08:49 Free T4 0.78 ng/dL (0.78-2.19) 02/26/18 08:49 Thyroxine (T4) 5.50 ug/dL (5.5-11.0) 02/26/18 08:49 Free T3 pg/mL 2.56 pg/mL (2.77-5.27) L 02/26/18 08:49 TSH 3rd Generation < 0.02 mIU/L (0.46-4.68) L 02/26/18 08:49 Calcium (PTH Intact) 9.3 mg/dL (8.6-10.4) 02/25/18 13:53 PTH w/Ion &Tot Calcium 62 pg/mL (14-64) 02/25/18 13:53 Cortisol AM Sample 14.0 ug/dL (4.46-22.7) 02/26/18 08:49 Urine Color Straw (YELLOW) 02/26/18 16:34 Urine Clarity Clear (Clear) 02/26/18 16:34 Urine pH 7.0 (5.0-8.0) 02/26/18 16:34 Ur Specific [place] 1.010 (1.003-1.030) 02/26/18 16:34 Urine Protein Negative mg/dL (NEGATIVE) 02/26/18 16:34 Urine Glucose (UA) Normal mg/dL (Normal) 02/26/18 16:34 Urine Ketones Negative mg/dL (NEGATIVE) 02/26/18 16:34 Urine Blood Negative (NEGATIVE) 02/26/18 16:34 Urine Nitrate Negative (NEGATIVE) 02/26/18 16:34 Urine Bilirubin Negative (NEGATIVE) 02/26/18 16:34 Urine Urobilinogen Normal mg/dL (0.2-1.0) 02/26/18 16:34 Ur Leukocyte Esterase Trace Michelle/uL (Negative) 02/26/18 16:34 Urine WBC (Auto) 1 /hpf (0-5) 02/26/18 16:34 Urine RBC (Auto) 1 /hpf (0-3) 02/26/18 16:34 Urine Bacteria Occ (<OCC) H 02/26/18 16:34 U Random Total Protein 282 mg/g creat (21-161) H 02/26/18 16:34 Urine Collection Time 24 HRS 02/28/18 11:13 Urine Total Volume 1200 mL 02/28/18 11:13 Urine Creatinine 70 mg/dL (20-275) 02/26/18 16:34 Ur Creatinine 24 Hour 604.8 mg/24hr (800-2800) L 02/28/18 11:13 Creatinine Clearance 21.0 mL/min (87-107) L 02/28/18 11:13 Urine Microalbumin 1.6 mg/dL 02/26/18 16:34 Microalb/Creat Ratio 22 (<30) 02/26/18 16:34 Ur Sodium 24 Hour 84.0 mmol/L (40-220) 02/28/18 11:13 Thyroperoxidase Ab 2 IU/mL (<9) 02/26/18 08:49 - Hospital Course Hospital Course: 77 F w/ Pmhx of CKD, ?dementia, HTN, thyroid disorder present to ED after referral by her PMD for hyperkalemia. Pt states she was is completely asymptomatic however, her priamry had called indicated her level was high. Patient denies chest pain, SOB, nausea, vomtiing, palpitation, headaches, vision changes. Patient did state during ED, she felt a little palpitation because of blood sugars dropping to 20s, but right now she feels normal. During hospital stay, patients hyperkalemia was controlled with kayexalate. Additionally patient TSH was <0.02. Patient experience tachycardia in 130s. Patient was started on methimazole 10 mg BID and propranolol 5 mg TID. HR controlled. Creatine initially was worsening but began improving, with day of discharge being 1.9 U/S thyroid: Right lobe: 4.6 x 1.1 x 1.6 centimeters. Heterogeneous echotexture. Normal flow. Multiple nodules: Midpole complex solid/cystic nodule with internal echogenic 4 millimeter calcification measuring 1.6 x 0.9 x 1.3 centimeters. Midpole heterogeneous solid echogenic nodule measuring 6 x 4 x 4 millimeters. Thyroid isthmus measures 1.8 millimeters. Heterogeneous echotexture. Normal flow. Left lobe: 4.3 x 1.2 x 1.5 centimeters. Heterogeneous echotexture. Normal flow. Multiple nodules: Lower pole complex solid echogenic nodule with internal cystic foci measuring 1.2 x 0.7 x 1.0 centimeters. Additional lower pole hypoechoic nodule with peripheral small nodular echogenic foci measuring 4 x 2 x 3 millimeters. Impression: Bilateral thyroid nodules as described above. ECHO: The left ventricle is borderline enlarged. There is borderline concentric left ventricular hypertrophy. Left ventricle systolic function is normal. The Ejection Fraction is 60-65%. The left ventricular diastolic function is abnormal- Grade I-abnormal relaxation pattern. The right ventricle is normal size. The right ventricular systolic function is normal. The left and right atrium size is normal. Mitral regurgitation is trace to mild. There is mild tricuspid regurgitation Above is only a brief summary of patient stay in the hospital. See EMR for full details. Below are the discharge instructions provided to the patient. Additionally instructions were verbalized to patient son, Isaiah who understood. Patient is stable for discharge per Dr. Kaylynn Apple. 1) Patient should discontinue all current home medications 2) Patient should fill the following medications and take them as prescribed 1) Clonidine 0.1 mg, 1 tablet per mouth, twice a day (8am and 8pm) 2) Norvasc 10 mg, 1 tablet per mouth, once a day (8am) 3) Aspirin 81 mg, 1 tablet per mouth, once a day (8am) 4) Methimazole 10 mg 1 tablet per mouth, twice a day (8AM and 8PM) 5) Crestor 10 mg 1 tablet per mouth, once a day (8pm) 6) Psyelium 1 packet per mouth with full glass of water in the evening (8pm), once a day 7) Propranolol 5 mg, 1 tablet per mouth, 3 times a day (8AM, 2PM, 8PM) 3) Please follow up with your Endocrinolgoist, Talent Agent, and Primary Doctor all within 1 week of discharge. Talent Agent: Dr. Cuevas Medical Records Auditor: Dr. Burnham PMD: [email or web address] 4) Please drink nephro shakes 3 times a day 5) If any of the symptoms worsen or return, please return to your nearest medical facility. 6) Take care. Thank you. Discharge Exam - Head Exam Head Exam: ATRAUMATIC, NORMAL INSPECTION - Eye Exam Eye Exam: EOMI, Normal appearance - ENT Exam ENT Exam: Mucous Membranes Moist - Respiratory Exam Respiratory Exam: Clear to PA & Lateral, NORMAL BREATHING PATTERN, UNREMARKABLE. absent: Rales, Rhonchi, Wheezes - Cardiovascular Exam Cardiovascular Exam: +S1, +S2. absent: Systolic Murmur - GI/Abdominal Exam GI & Abdominal Exam: Normal Bowel Sounds, Soft - Extremities Exam Additional comments: no pedal edema, no calf tenderness - Back Exam Back exam: absent: CVA tenderness (L), CVA tenderness (R) - Neurological Exam Neurological exam: Alert, Normal Gait, Oriented x3 - Psychiatric Exam Psychiatric exam: Normal Affect, Normal Mood - Skin Skin Exam: Dry, Intact, Normal Color, Warm Discharge Plan - Discharge Medications Prescriptions: amLODIPine [Norvasc] 10 mg PO DAILY #30 tab Aspirin [Aspirin Chewable] 81 mg PO DAILY #30 chew Atorvastatin Calcium 20 mg PO DAILY #30 tablet cloNIDine [Catapres] 0.1 mg PO BID #60 tab Methimazole 10 mg PO BID #60 tablet Propranolol [Inderal] 5 mg PO TID #90 tab Psyllium [Hydrocil Instant] 1 pkt PO QPM #30 packet - Follow Up Plan Condition: FAIR Disposition: HOME/ ROUTINE Instructions: Hyperkalemia (DC), Kidney Failure (DC), Renal Failure Diet (DC) Additional Instructions: Patient is stable for discharge per Dr. Kaylynn Apple. 1) Patient should discontinue all current home medications 2) Patient should fill the following medications and take them as prescribed 1) Clonidine 0.1 mg, 1 tablet per mouth, twice a day (8am and 8pm) 2) Norvasc 10 mg, 1 tablet per mouth, once a day (8am) 3) Aspirin 81 mg, 1 tablet per mouth, once a day (8am) 4) Methimazole 10 mg 1 tablet per mouth, twice a day (8AM and 8PM) 5) Crestor 10 mg 1 tablet per mouth, once a day (8pm) 6) Psyelium 1 packet per mouth with full glass of water in the evening (8pm), once a day 7) Propranolol 5 mg, 1 tablet per mouth, 3 times a day (8AM, 2PM, 8PM) 3) Please follow up with your Endocrinolgoist, Talent Agent, and Primary Doctor all within 1 week of discharge. Talent Agent: Dr. Cuevas Medical Records Auditor: Dr. Burnham PMD: [email or web address] 4) Please drink nephro shakes 3 times a day 5) If any of the symptoms worsen or return, please return to your nearest medical facility. 6) Take care. Thank you. Referrals: Lenin Cuevas MD [Staff Provider] - Catrachito Monsivais DO [Family Provider] -
--- NOTE | 2018-02-28 17:40 | CP.PCM.PN ---
Subjective - Date & Time of Evaluation Date of Evaluation: 02/28/18 Time of Evaluation: 13:00 - Subjective Subjective: Patient reports feeling well; tolerating diet; no vomiting/diarrhea; urinating well; Objective - Vital Signs/Intake and Output Vital Signs (last 24 hours): Temp Pulse Resp BP Pulse Ox 97.9 F 70 20 149/75 99 02/28/18 07:00 02/28/18 08:00 02/28/18 07:00 02/28/18 10:48 02/28/18 07:00 Intake and Output: 02/28/18 02/28/18 06:59 18:59 Intake Total 400 Balance 400 - Labs Labs: 02/28/18 06:25 02/28/18 11:13 - Constitutional Appears: Non-toxic, No Acute Distress - Eye Exam Eye Exam: Normal appearance - Respiratory Exam Respiratory Exam: Clear to Ausculation Bilateral. absent: Respiratory Distress - Cardiovascular Exam Cardiovascular Exam: RRR, +S1, +S2 - GI/Abdominal Exam GI & Abdominal Exam: Soft. absent: Distended, Tenderness - Extremities Exam Additional comments: no leg edema - Neurological Exam Neurological Exam: Alert, Awake - Psychiatric Exam Psychiatric exam: Normal Affect. absent: Agitated - Skin Skin Exam: Warm. absent: Cyanosis Assessment and Plan (1) Acute on chronic renal failure Assessment & Plan: YOU on CKD IV; renal function back to baseline with IVF and stable BP; CrCl 21 ml/min, consistent with CKD IV status; stable volume and electrolyte status; will not start dialysis planning yet; close outpatient f/u advised with us in 2 weeks; -will f/u proteinuria measurement; otherwise, stable from renal perspective for d/c home (discussed with primary team); -holding DOMINIQUE blockade for now; Status: Acute (2) Hyperkalemia Assessment & Plan: Holding all DOMINIQUE blockade for now; Status: Resolved (3) HTN (hypertension) Assessment & Plan: Still not clear why BP much better controlled; holding ARB/aldactone; continue amlodipine 10 mg daily, propranolol and clonidine 0.1 mg (decreasing to bid); -will f/u urine/plasma yovani level as outpatient; Status: Acute (4) Anemia Assessment & Plan: s/p dose of EPO, will monitor closely as oupatient and arrange for EPO; Status: Acute
[2018-02-28 17:43] LABS: TSI 558 % baseline (<140)
--- NOTE | 2018-02-28 20:34 | PN ---
DATE: 02/28/2018 ENDOCRINOLOGY FOLLOWUP NOTE LOCATION: Room 557. SUBJECTIVE: This is a 77-year-old female with recent marked hyperkalemia with underlying aggressive renal insufficiency and chronic kidney disease and is also now being followed closely for metabolic management as noted. LABORATORY DATA: Her repeat chemistry showed a BUN of 35, sodium 135, potassium 3.7, chloride 104, CO2 of 24, glucose 100, and creatinine 1.9. Her glucose levels have ranged from 113 to 119 mg/dL. The latest thyroid studies showed a T4 of 5.50 with a TSH of less than 0.02 and a free T4 of 0.78. ASSESSMENT AND PLAN: So at this time, we will continue the Tapazole given as 10 mg twice a day as ordered. We will obtain serial thyroid studies and repeat the thyroid studies actually tomorrow morning and titrate her dose regimen accordingly. We will also obtain serial chemistries and supplement accordingly as needed. We will follow. Crystal Ho MD
[2018-03-01 10:29] LABS: CREATININE, 24 HOUR URINE 0.62 g/24 h (0.50-2.15)
== END 2018-02-28 15:36 | disposition home or self-care (01) | DRG 683 ==
LOC: C.ER 10:22 → C.9E 14:51 → C.5S 17:58 → OBSVTOIN 02-27 16:31
PROVIDERS: ADMIT Family Medicine; ATTEND Family Medicine
DX: N17.9 Acute kidney failure, unspecified (principal); I13.0 Hypertensive heart and chronic kidney disease with heart failure and stage 1 through stage 4 chronic kidney disease, or unspecified chronic kidney disease; E27.40 Unspecified adrenocortical insufficiency; E87.5 Hyperkalemia; N18.4 Chronic kidney disease, stage 4 (severe); D63.1 Anemia in chronic kidney disease; E05.20 Thyrotoxicosis with toxic multinodular goiter without thyrotoxic crisis or storm; E06.3 Autoimmune thyroiditis; E16.2 Hypoglycemia, unspecified; E26.9 Hyperaldosteronism, unspecified; E78.5 Hyperlipidemia, unspecified; E88.09 Other disorders of plasma-protein metabolism, not elsewhere classified; F03.90 Unspecified dementia, unspecified severity, without behavioral disturbance, psychotic disturbance, mood disturbance, and anxiety; I08.1 Rheumatic disorders of both mitral and tricuspid valves; I50.9 Heart failure, unspecified; Z79.4 Long term (current) use of insulin; Z79.899 Other long term (current) drug therapy

== ENCOUNTER 2018-06-27 08:38 | Outpatient (CLI) | payer MEDICARE, OTHER | END 2018-06-27 08:39 | disposition home or self-care (01) | LOC: C.MAMMO 08:38 | DX: Z12.31 Encounter for screening mammogram for malignant neoplasm of breast (principal) ==